=== PATIENT | female | born 1985 | race Caucasian/White ===

== ENCOUNTER 2018-06-22 05:04 | Observation (INO) | payer MEDICAID, SELFPAY ==
[2018-06-22] VITALS (31 sets, daily range): BP systolic 91–158; BP diastolic 52–82; PULSE 59–98; RESP 11–20; TEMP 36.6–36.9; O2SAT 95–100
--- NOTE | 2018-06-22 05:16 | ED.GENADUL_ITS ---
Disposition Clinical Impression: Cocaine intoxication, Hyponatremia, Hypomagnesemia Disposition: [facility] INPATIENT Condition: Fair Medical Decision Making - Lab Data Results reviewed for labs ordered during visit: Yes - EKG Data -: EKG Interpreted by Me EKG shows normal: sinus rhythm, axis, intervals Rate: normal Interpretation: normal EKG - Radiology Data Radiology results: report reviewed - Medical Decision Making Patient here after using cocaine last night. She seems mildly paranoid and anxious and is complaining of feeling chest pressure, shortness of breath, dizziness. Suspect this is all related to cocaine use. Will need to an EKG. Will place an IV and give fluids as well as a little Ativan. Will also give aspirin. Will get a chest x-ray and reevaluate. At the very least will probably hold for second troponin. Laboratory studies significant for sodium of 123. On repeat at this unchanged at 124 so not lab error. Magnesium was a little low and is being replaced. Saline continuing after the bolus at 150/hour. On further questioning patient states she drank a lot of water last night after started feeling bad. No etiology for her hyponatremia other than water intoxication. Troponin and d- dimer negative. Chest x-ray normal. She continues to be somewhat paranoid with flat affect. She does not express any homicidal or suicidal thoughts. Case discussed with hospitalist for admission due to the hyponatremia. We will send serum and urine osmolality. She will be admitted for telemetry observation for further evaluation and management. Patient in stable condition and accepted by Dr. Palm, hospitalist. History of Present Illness - General Chief complaint: RespSymp Stated complaint: RESP SYMP Time Seen by Provider: 06/22/18 05:14 Source: patient Mode of arrival: ambulatory Limitations: no limitations - History of Present Illness Initial comments: Patient presents to the emergency department with complaints of feeling short of breath, dizzy, pressure in her chest. She states this has been ongoing for 3 -4 hours now. She thinks it is related to her vaping, however, on closer questioning she used cocaine last night around midnight. She denies this being a regular habit. Symptoms started maybe 1-2 hours after. They have been gone going throughout the rest of the night. She has not been able to sleep. She is anxious. She feels like she cannot catch her breath. She feels like her legs are swelling up. She describes a pressure feeling and a fullness in her chest. She also complains of some pain with breathing in the left shoulder area. - Related Data Idamay-3S/Dha/Epa/Fish Oil [Fish Oil 1,200 mg Softgel] 1 each PO DAILY 06/27/13 Vit C 09/05/13 Allergies Allergy/AdvReac Type Severity Reaction Status Date / Time red dye Allergy Unknown HIVES ( Unverified 07/13/16 10:13 A LITTLE CHILD) wheat Allergy Unknown SKIN RASH Unverified 07/13/16 10:13 lactase [Lactase] AdvReac Unknown STUFFINESS, Unverified 07/13/16 10:13 NAUSEA acetaminophen [From Tylenol] AdvReac see comment Unverified 07/13/16 10:13 RED MEAT Allergy Unknown NAUSEA, Uncoded 07/13/16 10:13 VOMITTING, DIARRHEA, HIVES Review of Systems Constitutional: denies: chills, diaphoresis, fever Eyes: denies: vision change ENT: denies: throat pain, congestion Respiratory: shortness of breath. denies: cough Cardiovascular: chest pain. denies: syncope Gastrointestinal: denies: abdominal pain, nausea, vomiting, diarrhea Genitourinary: denies: dysuria Musculoskeletal: denies: back pain, arthralgia Skin: denies: rash Neurological: denies: headache, weakness, numbness Psychiatric: anxiety. denies: homicidal thoughts, suicidal thoughts Past Medical History - Past Medical History Medical history: no medical history Surgical history: no surgical history - Social History Smoking status: current some day smoker Alcohol use: none Drug use: cocaine, marijuana General Exam - General Limitations: no limitations General appearance: alert, in no apparent distress - Head Head exam: Present: atraumatic, normocephalic - Eye Eye exam: Present: normal apperance - Neck Neck exam: Present: normal inspection - Respiratory Respiratory exam: Present: normal lung sounds bilaterally. Absent: respiratory distress - Cardiovascular Cardiovascular Exam: Present: regular rate, normal rhythm, normal heart sounds - GI/Abdominal GI/Abdominal exam: Present: soft. Absent: distended, tenderness, guarding - Extremities Exam Extremities exam: Absent: tenderness, pedal edema, calf tenderness - Neurological Exam Neurological exam: Present: alert, oriented X3, CN II-XII intact. Absent: motor sensory deficit - Psychiatric Psychiatric exam: Present: flat affect - Skin Skin exam: Present: warm, dry, intact Course Vital Signs - 24 hr 06/22/18 05:08 Temperature 98.4 F Pulse 98 H Respiratory 16 Rate Blood Pressure 158/82 Pulse Oximetry 99
--- NOTE | 2018-06-22 05:45 | DI.REPORT_ITS ---
SYMPTOM/DIAGNOSIS: CHEST PAIN, SOB FRONTAL AND LATERAL CHEST: There is no evidence of an infiltrate or pleural effusion. The cardiovascular structures appear intact. SUMMARY: No evidence of acute cardiopulmonary disease.
[2018-06-22] MEDS: Aspirin 81 MG CHEW 324 MG CH (05:46)
[2018-06-22] MEDS: LORazepam 2 MG/ML VIAL 0.5 MG IVP (05:46)
[2018-06-22] MEDS: Normal Saline 1,000 ML 1000 ML IV (05:47)
[2018-06-22 05:52] LABS: *AMPHETAMINES SCREEN URINE Negative (Negative); *BARBITURATES SCREEN URINE Negative (Negative); *BENZODIAZEPINES SCREEN URINE Negative (Negative); Cannabinoids THC Negative (Negative); Cocaine Screen,Urine POSITIVE (Negative); METHADONE URINE SCREEN Negative (Negative); OPIATES URINE SCREEN Negative (Negative)
[2018-06-22 05:53] LABS: Abs Immature Grans 0.01 k/cumm (0.0-0.09); Absolute Basophil Count 0.02 k/cumm (0.0-0.2); Absolute Eosinophil Count 0.05 k/cumm (0.0-0.7); Absolute Lymphocyte Count 1.32 k/cumm (1.2-3.4); Absolute Monocyte Count 0.56 k/cumm (0.11-0.7); Absolute Neutrophil Count 3.98 k/cumm (1.2-6.7); Basophils % 0.3; Eosinophils % 0.8; HGB 11.9 g/dL (12.0-15.5); Immature Grans % 0.2; Lymphocytes % 22.2; Mean Corpuscular Volume 97.1 fL (80-95); Mean Platelet Volume 9.5 fL (8.0-11.0); Monocytes % 9.4; Neutrophils % 67.1; Platelet Count 218 x1000/uL (130-400); RBC Distribution Width 12.4 % (11.7-14.6); White Blood Cell Count 5.94 k/cumm (4.4-10.8)
[2018-06-22 05:53] LABS: Tricyclic Antidepressants Negative (Negative)
[2018-06-22 06:07] LABS: ALT 27 U/L (12-78); AST 19 U/L (15-37); Albumin 3.6 g/dL (3.4-5.0); Alkaline Phosphatase 41 U/L (46-116); Anion Gap 6.8 mmol/L (3-11); BUN 16 mg/dL (7-18); Bilirubin, Total 0.5 mg/dL (0.2-1.0); CO2 24.2 mmol/L (21.0-32.0); CREATININE 0.59 mg/dL (0.55-1.02); Calcium 8.5 mg/dL (8.5-10.1); Chloride 92 mmol/L (98-107); Glucose 102 mg/dL (70-100); Magnesium 1.4 mg/dL (1.8-2.4); Potassium 3.5 mmol/L (3.5-5.1); Total Protein 7.1 g/dL (6.4-8.2)
[2018-06-22 06:13] LABS: Sodium 123 mmol/L (136-145); Troponin I < 0.02 ng/mL (0.00-0.06)
--- NOTE | 2018-06-22 06:18 | DI.VRAD_ITS ---
EXAM: XR Chest, 2 Views CLINICAL HISTORY: 32 years old, female; Pain; Chest pain; Type not specified; Patient HX: Chest pain and SOB TECHNIQUE: Frontal and lateral views of the chest. COMPARISON: No relevant prior studies available. FINDINGS: Lungs: Lungs are mildly hyperinflated but clear of an acute process. Pleural space: Unremarkable. No pneumothorax. Heart: Unremarkable. No cardiomegaly. Mediastinum: Unremarkable. Bones/joints: Mild S-shaped scoliotic curvature with minimal degenerative change. IMPRESSION: Mild hyperinflation. No acute intrathoracic process. Dictated and Authenticated by: Rao Hays MD. Ordering:OLIVA SMYTH MD
[2018-06-22 06:31] LABS: D-Dimer 146 ng/mlFEU (<500)
[2018-06-22 06:37] LABS: Anion Gap 5.6 mmol/L (3-11); CO2 23.4 mmol/L (21.0-32.0); Chloride 95 mmol/L (98-107); Potassium 3.2 mmol/L (3.5-5.1)
[2018-06-22 06:40] LABS: Sodium 124 mmol/L (136-145)
[2018-06-22] MEDS: Normal Saline 1,000 ML 150 ML IV (06:55)
[2018-06-22 07:09] LABS: ETHANOL BLOOD < 3.0 mg/dL (<3)
[2018-06-22 10:33] LABS: Troponin I < 0.02 ng/mL (0.00-0.06)
--- NOTE | 2018-06-22 11:33 | PDOC.HP ---
Date of Service: 06/22/18 Time of Service: 11:33 Assessment/Plan - Assessment/Plan (1) Hyponatremia Plan: Likely related to significant free water intake. No other cause for hyponatremia identified at this point. Urine osmolality pending. Continue IV NS at current rate. Maintain fluid restriction. Reassess sodium level this afternoon to ensure sodium replacement is not occurring too rapidly. Plan to reassess sodium level again in the morning. (2) Hypomagnesemia Plan: She received IV magnesium bolus in the ED. Reassess magnesium in the morning. (3) Hypokalemia Plan: Provide oral potassium supplementation and reassess potassium level in the morning. History of Present Illness - History of Present Illness Chief Complaint: Dizzy, chest pressure, difficulty breathing. History of Present Illness: Joshua Capellan is a 32 year old female with no medical history who presented to the Emergency Department this morning with reports of feeling short of breath, dizzy and chest pressure for 3-4 hours prior to her arrival. She reported to the ED physician that she had used cocaine last night around midnight. Her symptoms began shortly after she used cocaine. She was not able to sleep all night, she was very anxious. She was given ativan and aspirin. She reports drinking copious amounts of water when she was not feeling well. In the ED her workup included an EKG, which showed normal sinus rhythm, normal axis and intervals. She had labs drawn which revealed hyponatremia with a sodium of 124, hypokalemia with a potassium level of 3.2, as well as hypomagnesemia with a magnesium level of 1.4. Her troponin came back negative x2. D-dimer was negative, Chest x-ray was normal. She is admitted to the med/surg floor for observation and treatment of her electrolyte abnormalities. - Past Medical History Past Medical History: Patient reports no past medical history - Past Surgical History Past Surgical History: None - Past Family History Family History: CAD (Father with history of [place]) - Past Social History Smoke: No (reports smoking occasionally, unable to quantify.) Occupation: Bilingual Student Tutor. Alcohol: Occassional (Not daily but unable to quantify any further.) Drugs: Cocaine (used cocaine last night, states she does not use regularly but has used previously.), Marijuana (Smokes marijuana sometimes.) Lives: With Family (She lives with her 5 year old son and her parents.) Review of Systems - Review of Systems Constitutional: Other (Fatigue). denies: Fever Respiratory: Shortness of Breath (she feels like, it is hard to breathe.). denies: Cough, Wheezing Cardiovascular: Chest Pain (She continues to report chest pressure). denies: Palpitations Gastrointestinal: Nausea (Mild nausea.). denies: Vomiting, Diarrhea, Constipation Genitourinary: denies: Dysuria Other: She was very sleepy throughout our conversation. She had to be awakened repeatedly. She did not sleep all night and had ativan in the ED. - Medications/Allergies Allergies/Adverse Reactions: Allergies Allergy/AdvReac Type Severity Reaction Status Date / Time red dye Allergy Unknown HIVES ( Unverified 07/13/16 10:13 A LITTLE CHILD) wheat Allergy Unknown SKIN RASH Unverified 07/13/16 10:13 lactase [Lactase] AdvReac Unknown STUFFINESS, Unverified 07/13/16 10:13 NAUSEA acetaminophen [From Tylenol] AdvReac see comment Unverified 07/13/16 10:13 RED MEAT Allergy Unknown NAUSEA, Uncoded 07/13/16 10:13 VOMITTING, DIARRHEA, HIVES Medications: Current Medications Albuterol Sulfate (Proventil Updraft) 2.5 mg UPD Q2H PRN PRN Albuterol/Ipratropium (Duoneb Updraft) 3 ml UPD Q6H PRN PRN Dimethicone/Zinc Oxide (Kevon Protect Cream) 0 gm TP PRN PRN Docusate Sodium (Colace) 100 mg PO TID PRN PRN Enoxaparin Sodium (Lovenox) 40 mg SC Q24H [facility] Magnesium Sulfate/Dextrose () Confirm Administered Dose 1 gm in 100 mls @ as directed .ROUTE .DM PRN Sodium Chloride (Saline 1000ml Bag) 1,000 mls @ 125 mls/hr IV INFUSION [facility] Last Admin: 06/22/18 06:55 Dose: 150 mls/hr IV Miscellaneous Supplies () 1 each IV DIRECTED [facility] Magnesium Hydroxide (Milk Of Magnesia) 30 ml PO DAILY PRN PRN Polyethylene Glycol (Miralax) 17 gm PO DAILY PRN PRN PRN Reason: Constipation Potassium Chloride (K-Dur) 40 meq PO BID [facility] Sodium Chloride (Saline Flush 10 Ml Syringe) 0 ml IVP PRN PRN Objective - Exam Vitals and I&O: Vital Signs Temp 36.7 C 06/22/18 08:46 Pulse 69 06/22/18 08:58 Resp 16 06/22/18 08:46 BP 134/77 06/22/18 08:46 Pulse Ox 100 06/22/18 08:46 Intake & Output 06/21/18 06/21/18 06/22/18 11:59 23:59 11:59 Intake Total 1000 Balance 1000 Weight 65.771 kg Intake: IV 1000 General: Oriented x3 (Answers questions appropriately when awakened, falls back alseep readily.), Cooperative, No acute distress. denies: Alert (Sleeping, difficult to awaken, falling asleep throughout conversation. ) HEENT: Atraumatic, PERRLA, Mucous membr. moist/pink Neck: Supple. denies: JVD Lungs: Clear to auscultation, Normal air movement (respirations are even and unlabroed. ) Cardiovascular: Regular rate (nontachycardic.), Normal S1, Normal S2. denies: Murmurs Abdomen: Normal bowel sounds, Soft, Tenderness (mild tenderness on palpation of abdomen.) Extremities: Normal pulses. denies: Clubbing, Cyanosis, Edema, Tenderness/swelling Skin: denies: Rashes Neurological: Normal speech, Strength at 5/5 X4 ext, Normal tone Psych/Mental Status: Other (does not appear anxious at present.) Results - Laboratory Data Result Diagrams: 06/22/18 05:35 06/22/18 06:25 Laboratory Results: Laboratory Tests 06/22/18 06/22/18 06/22/18 05:31 05:35 05:35 WBC 5.94 RBC 3.50 L Hgb 11.9 L Hct 34.0 L MCV 97.1 H MCH 34.0 H MCHC 35.0 RDW 12.4 Plt Count 218 MPV 9.5 Immature Gran % 0.2 Neutrophils % 67.1 Lymphocytes % 22.2 Monocytes % 9.4 Eosinophils % 0.8 Basophils % 0.3 Absolute Neutrophils 3.98 Absolute Lymphocytes 1.32 Absolute Monocytes 0.56 Absolute Eosinophils 0.05 Absolute Basophils 0.02 D-Dimer Sodium 123 L* Potassium 3.5 Chloride 92 L Carbon Dioxide 24.2 Anion Gap 6.8 BUN 16 Creatinine 0.59 Estimated GFR/1.73 m2 >= 60.00 Glucose 102 H Calcium 8.5 Magnesium 1.4 L Total Bilirubin 0.5 AST 19 ALT 27 Alkaline Phosphatase 41 L Troponin I < 0.02 Total Protein 7.1 Albumin 3.6 Urine Opiates Screen Negative Urine Methadone Screen Negative Ur Barbiturates Screen Negative Ur Tricyclics Screen Negative Ur Amphetamines Screen Negative U Benzodiazepines Scrn Negative Urine Cocaine Screen Positive Ur THC Screen Negative Ethyl Alcohol 06/22/18 06/22/18 06/22/18 05:50 06:25 06:25 WBC RBC Hgb Hct MCV MCH MCHC RDW Plt Count MPV Immature Gran % Neutrophils % Lymphocytes % Monocytes % Eosinophils % Basophils % Absolute Neutrophils Absolute Lymphocytes Absolute Monocytes Absolute Eosinophils Absolute Basophils D-Dimer 146 Sodium 124 L* Potassium 3.2 L Chloride 95 L Carbon Dioxide 23.4 Anion Gap 5.6 BUN Creatinine Estimated GFR/1.73 m2 Glucose Calcium Magnesium Total Bilirubin AST ALT Alkaline Phosphatase Troponin I Total Protein Albumin Urine Opiates Screen Urine Methadone Screen Ur Barbiturates Screen Ur Tricyclics Screen Ur Amphetamines Screen U Benzodiazepines Scrn Urine Cocaine Screen Ur THC Screen Ethyl Alcohol < 3.0
--- NOTE | 2018-06-22 11:46 | PDOC.HP_ITS ---
Date of Service: 06/22/18 Time of Service: 11:33 Assessment/Plan - Assessment/Plan (1) Hyponatremia Plan: Likely related to significant free water intake. No other cause for hyponatremia identified at this point. Urine osmolality pending. Continue IV NS at current rate. Maintain fluid restriction. Reassess sodium level this afternoon to ensure sodium replacement is not occurring too rapidly. Plan to reassess sodium level again in the morning. (2) Hypomagnesemia Plan: She received IV magnesium bolus in the ED. Reassess magnesium in the morning. (3) Hypokalemia Plan: Provide oral potassium supplementation and reassess potassium level in the morning. History of Present Illness - History of Present Illness Chief Complaint: Dizzy, chest pressure, difficulty breathing. History of Present Illness: Joshua Capellan is a 32 year old female with no medical history who presented to the Emergency Department this morning with reports of feeling short of breath , dizzy and chest pressure for 3-4 hours prior to her arrival. She reported to the ED physician that she had used cocaine last night around midnight. Her symptoms began shortly after she used cocaine. She was not able to sleep all night, she was very anxious. She was given ativan and aspirin. She reports drinking copious amounts of water when she was not feeling well. In the ED her workup included an EKG, which showed normal sinus rhythm, normal axis and intervals. She had labs drawn which revealed hyponatremia with a sodium of 124, hypokalemia with a potassium level of 3.2, as well as hypomagnesemia with a magnesium level of 1.4. Her troponin came back negative x2. D-dimer was negative, Chest x-ray was normal. She is admitted to the med/ surg floor for observation and treatment of her electrolyte abnormalities. - Past Medical History Past Medical History: Patient reports no past medical history - Past Surgical History Past Surgical History: None - Past Family History Family History: CAD (Father with history of [place]) - Past Social History Smoke: No (reports smoking occasionally, unable to quantify.) Occupation: [employer]. Alcohol: Occassional (Not daily but unable to quantify any further.) Drugs: Cocaine (used cocaine last night, states she does not use regularly but has used previously.), Marijuana (Smokes marijuana sometimes.) Lives: With Family (She lives with her 5 year old son and her parents.) Review of Systems - Review of Systems Constitutional: Other (Fatigue). denies: Fever Respiratory: Shortness of Breath (she feels like, it is hard to breathe.). denies: Cough, Wheezing Cardiovascular: Chest Pain (She continues to report chest pressure). denies: Palpitations Gastrointestinal: Nausea (Mild nausea.). denies: Vomiting, Diarrhea, Constipation Genitourinary: denies: Dysuria Other: She was very sleepy throughout our conversation. She had to be awakened repeatedly. She did not sleep all night and had ativan in the ED. - Medications/Allergies Allergies/Adverse Reactions: Allergies Allergy/AdvReac Type Severity Reaction Status Date / Time red dye Allergy Unknown HIVES ( Unverified 07/13/16 10:13 A LITTLE CHILD) wheat Allergy Unknown SKIN RASH Unverified 07/13/16 10:13 lactase [Lactase] AdvReac Unknown STUFFINESS, Unverified 07/13/16 10:13 NAUSEA acetaminophen [From Tylenol] AdvReac see comment Unverified 07/13/16 10:13 RED MEAT Allergy Unknown NAUSEA, Uncoded 07/13/16 10:13 VOMITTING, DIARRHEA, HIVES Medications: Current Medications Albuterol Sulfate (Proventil Updraft) 2.5 mg UPD Q2H PRN PRN Albuterol/Ipratropium (Duoneb Updraft) 3 ml UPD Q6H PRN PRN Dimethicone/Zinc Oxide (Kevon Protect Cream) 0 gm TP PRN PRN Docusate Sodium (Colace) 100 mg PO TID PRN PRN Enoxaparin Sodium (Lovenox) 40 mg SC Q24H [facility] Magnesium Sulfate/Dextrose () Confirm Administered Dose 1 gm in 100 mls @ as directed .ROUTE .DM PRN Sodium Chloride (Saline 1000ml Bag) 1,000 mls @ 125 mls/hr IV INFUSION [facility] Last Admin: 06/22/18 06:55 Dose: 150 mls/hr IV Miscellaneous Supplies () 1 each IV DIRECTED [facility] Magnesium Hydroxide (Milk Of Magnesia) 30 ml PO DAILY PRN PRN Polyethylene Glycol (Miralax) 17 gm PO DAILY PRN PRN PRN Reason: Constipation Potassium Chloride (K-Dur) 40 meq PO BID [facility] Sodium Chloride (Saline Flush 10 Ml Syringe) 0 ml IVP PRN PRN Objective - Exam Vitals and I&O: Vital Signs Temp 36.7 C 06/22/18 08:46 Pulse 69 06/22/18 08:58 Resp 16 06/22/18 08:46 BP 134/77 06/22/18 08:46 Pulse Ox 100 06/22/18 08:46 Intake & Output 06/21/18 06/21/18 06/22/18 11:59 23:59 11:59 Intake Total 1000 Balance 1000 Weight 65.771 kg Intake: IV 1000 General: Oriented x3 (Answers questions appropriately when awakened, falls back alseep readily.), Cooperative, No acute distress. denies: Alert (Sleeping, difficult to awaken, falling asleep throughout conversation. ) HEENT: Atraumatic, PERRLA, Mucous membr. moist/pink Neck: Supple. denies: JVD Lungs: Clear to auscultation, Normal air movement (respirations are even and unlabroed. ) Cardiovascular: Regular rate (nontachycardic.), Normal S1, Normal S2. denies: Murmurs Abdomen: Normal bowel sounds, Soft, Tenderness (mild tenderness on palpation of abdomen.) Extremities: Normal pulses. denies: Clubbing, Cyanosis, Edema, Tenderness/ swelling Skin: denies: Rashes Neurological: Normal speech, Strength at 5/5 X4 ext, Normal tone Psych/Mental Status: Other (does not appear anxious at present.) Results - Laboratory Data Result Diagrams: 06/22/18 05:35 06/22/18 06:25 Laboratory Results: Laboratory Tests 06/22/18 06/22/18 06/22/18 05:31 05:35 05:35 WBC 5.94 RBC 3.50 L Hgb 11.9 L Hct 34.0 L MCV 97.1 H MCH 34.0 H MCHC 35.0 RDW 12.4 Plt Count 218 MPV 9.5 Immature Gran % 0.2 Neutrophils % 67.1 Lymphocytes % 22.2 Monocytes % 9.4 Eosinophils % 0.8 Basophils % 0.3 Absolute Neutrophils 3.98 Absolute Lymphocytes 1.32 Absolute Monocytes 0.56 Absolute Eosinophils 0.05 Absolute Basophils 0.02 D-Dimer Sodium 123 L* Potassium 3.5 Chloride 92 L Carbon Dioxide 24.2 Anion Gap 6.8 BUN 16 Creatinine 0.59 Estimated GFR/1.73 m2 >= 60.00 Glucose 102 H Calcium 8.5 Magnesium 1.4 L Total Bilirubin 0.5 AST 19 ALT 27 Alkaline Phosphatase 41 L Troponin I < 0.02 Total Protein 7.1 Albumin 3.6 Urine Opiates Screen Negative Urine Methadone Screen Negative Ur Barbiturates Screen Negative Ur Tricyclics Screen Negative Ur Amphetamines Screen Negative U Benzodiazepines Scrn Negative Urine Cocaine Screen Positive Ur THC Screen Negative Ethyl Alcohol 06/22/18 06/22/18 06/22/18 05:50 06:25 06:25 WBC RBC Hgb Hct MCV MCH MCHC RDW Plt Count MPV Immature Gran % Neutrophils % Lymphocytes % Monocytes % Eosinophils % Basophils % Absolute Neutrophils Absolute Lymphocytes Absolute Monocytes Absolute Eosinophils Absolute Basophils D-Dimer 146 Sodium 124 L* Potassium 3.2 L Chloride 95 L Carbon Dioxide 23.4 Anion Gap 5.6 BUN Creatinine Estimated GFR/1.73 m2 Glucose Calcium Magnesium Total Bilirubin AST ALT Alkaline Phosphatase Troponin I Total Protein Albumin Urine Opiates Screen Urine Methadone Screen Ur Barbiturates Screen Ur Tricyclics Screen Ur Amphetamines Screen U Benzodiazepines Scrn Urine Cocaine Screen Ur THC Screen Ethyl Alcohol < 3.0
[2018-06-22] MEDS: Potassium Chloride 20 MEQ TABCR 40 MEQ PO ×2 (11:47→20:39)
[2018-06-22 14:25] LABS: Anion Gap 2.9 mmol/L (3-11); BUN 11 mg/dL (7-18); CO2 27.1 mmol/L (21.0-32.0); CREATININE 0.53 mg/dL (0.55-1.02); Calcium 8.2 mg/dL (8.5-10.1); Chloride 108 mmol/L (98-107); Glucose 107 mg/dL (70-100); Potassium 4.4 mmol/L (3.5-5.1); Sodium 138 mmol/L (136-145)
[2018-06-22] MEDS: Normal Saline 1,000 ML 125 ML IV (14:31)
--- NOTE | 2018-06-22 15:06 | CHAPLAIN ---
Thefermin's (Lindsay)'s mom Gautam asked me to pray with her while we were in the family waiting room. And then she asked me to offer a prayer with Lindsay, who was resting. Lindsay agreed to let us pray with her. Gautam said she is not a Lindsay's HIPPA list of who medical staff can speak with, although Lindsay lives with Gautam and her , Corey, who is Lindsay's father. Lindsay also has a five year old son, Dillon. 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
--- NOTE | 2018-06-22 18:37 | NUR.NOTE ---
Nursing Note: Pt slept almost entire shift. Awoke @ 1800, hungry and thirsty. Eating food provided by her mother, nuts lenard kolb. Asking at this time if she can be discharged. Pt informed MD wants to keep her here overnight. Pt agreeable to stay. Pt had water bottle in room, she drank approximately 550 ml. Pt informed she was on fluid restriction and asked not to drink anything not provided by hospital staff.
[2018-06-22 21:17] LABS: Osmolality, Urine 82 mos/kg (150-1150)
[2018-06-22 22:11] LABS: Osmolality Serum 253 mos/kg (275-295)
[2018-06-23 00:23] VITALS: BP 100/56; PULSE 54; RESP 17; TEMP 36.6; O2SAT 98
[2018-06-23 03:51] VITALS: BP 100/58; PULSE 55; RESP 15; TEMP 35.8; O2SAT 98
[2018-06-23 06:44] LABS: HCT 38.5 % (36.0-46.0); Mean Corp. HGB Concentration 33.8 g/dL (32.0-36.0); Mean Corpuscular Hemoglobin 33.7 pg (27.0-33.0); Mean Corpuscular Volume 99.7 fL (80-95); Mean Platelet Volume 9.8 fL (8.0-11.0); Platelet Count 241 x1000/uL (130-400); RBC 3.86 m/cumm (4.00-5.20); RBC Distribution Width 12.9 % (11.7-14.6); White Blood Cell Count 5.67 k/cumm (4.4-10.8)
[2018-06-23 07:10] LABS: Magnesium 1.7 mg/dL (1.8-2.4); TSH (W/Ref FT4) 2.26 uIU/mL (0.358-3.74)
--- NOTE | 2018-06-23 07:17 | PDOC.CMIN ---
Date of Service: 06/23/18 Time of Service: 11:03 Care Management Initial Assess REASON FOR HOSPITALIZATION:: Dizzy, Chest pressure, Difficulty breathing PAST MEDICAL HISTORY/PAST SURGICAL HISTORY:: Reports no medical history PREVIOUS FUNCTIONAL STATUS/SOCIAL/FAMILY SUPPORTS:: Joshua Montoya resides with her parents Luis E and Corey, as well as her 5 y/o son in [facility]. Lindsay is independent at baseline, she manages her ADL's and drives. CURRENT FUNCTIONAL STATUS:: Lindsay is lying in bed when this bond underwriter visits. She is pleasant throughout discussion. ADVANCE DIRECTIVES:: None on file Has patient been provided with information about the portal?: Yes Did the patient sign up for the portal?: No CODE STATUS:: Full Code INSURANCE COVERAGE / FINANCIAL ISSUES:: Medicaid CURRENT HOME/COMMUNITY SERVICES/EQUIPMENT:: Currently Pt has no services or medical equipment in the community. PRIMARY CARE PHYSICIAN:: Mariana Vincent POTENTIAL DISCHARGE NEEDS:: F/U appointment with PCP PATIENT/FAMILY EDUCATION NEEDS:: Review DC instructions, any limitations, and ongoing DC planning discussion. ANTICIPATED BARRIERS TO DISCHARGE:: None identified at this time. TRANSPORTATION:: Via private vehicle with mom Luis E PLAN:: Lindsay will return home with no anticipated services. She will F/U with PCP and plan of care as prescribed. Lindsay's mom will transport when ready.
[2018-06-23 07:35] VITALS: BP 118/70; PULSE 64; RESP 22; TEMP 36.8; O2SAT 99
--- NOTE | 2018-06-23 07:52 | INITIAL_ITS ---
Date of Service: 06/23/18 Time of Service: 11:03 Care Management Initial Assess REASON FOR HOSPITALIZATION:: Dizzy, Chest pressure, Difficulty breathing PAST MEDICAL HISTORY/PAST SURGICAL HISTORY:: Reports no medical history PREVIOUS FUNCTIONAL STATUS/SOCIAL/FAMILY SUPPORTS:: Joshua Montoya resides with her parents Luis E and Corey, as well as her 5 y/o son in [facility]. Lindsay is independent at baseline, she manages her ADL's and drives. CURRENT FUNCTIONAL STATUS:: Lindsay is lying in bed when this medical underwriter visits. She is pleasant throughout discussion. ADVANCE DIRECTIVES:: None on file Has patient been provided with information about the portal?: Yes Did the patient sign up for the portal?: No CODE STATUS:: Full Code INSURANCE COVERAGE / FINANCIAL ISSUES:: Medicaid CURRENT HOME/COMMUNITY SERVICES/EQUIPMENT:: Currently Pt has no services or medical equipment in the community. PRIMARY CARE PHYSICIAN:: Mariana Vincent POTENTIAL DISCHARGE NEEDS:: F/U appointment with PCP PATIENT/FAMILY EDUCATION NEEDS:: Review DC instructions, any limitations, and ongoing DC planning discussion. ANTICIPATED BARRIERS TO DISCHARGE:: None identified at this time. TRANSPORTATION:: Via private vehicle with mom Luis E PLAN:: Lindsay will return home with no anticipated services. She will F/U with PCP and plan of care as prescribed. Lindsay's mom will transport when ready.
[2018-06-23 08:14] LABS: Anion Gap 8.8 mmol/L (3-11); BUN 14 mg/dL (7-18); CO2 23.2 mmol/L (21.0-32.0); CREATININE 0.66 mg/dL (0.55-1.02); Calcium 8.7 mg/dL (8.5-10.1); Chloride 107 mmol/L (98-107); Glucose 86 mg/dL (70-100); Potassium 4.4 mmol/L (3.5-5.1); Sodium 139 mmol/L (136-145)
[2018-06-23] MEDS: Potassium Chloride 20 MEQ TABCR 40 MEQ PO (08:32)
[2018-06-23] MEDS: Magnesium Oxide 400 MG TAB PO (08:32)
--- NOTE | 2018-06-23 11:02 | DISCHARGE ---
Discharge - Discharge Orders Referrals: NATALY WARNER [ NON-[facility] STAFF PHYSICIAN] - 06/29/18 10:15 am (Joshua, please call to confirm your appointment.) Other Amb Orders: Basic Metabolic Panel [LAB] Time Frame: 1 Week, Location: Determined By Patient Magnesium [LAB] Time Frame: 1 Week, Location: Determined By Patient - Discharge Plan Disposition: HOME Condition: Improving Diet:: As Tolerated Equipment/Supplies:: No Equipment Needed Activity:: Activity as Tolerated - Instructions Micromedex Instructions: Hyponatremia (DC), Hypokalemia (DC), Hypomagnesemia (DC) Additional Instructions: Follow up with your PCP as scheduled. Your PCP may decide to do a follow up EKG. You should incorporate more magnesium into your diet, some magnesium rich foods are: Dark chocolate, avocados, nuts, legumes, tofu, seeds, whole grains. You can look online to see more options. You will need to have blood work done next week to reassess your Sodium, magnesium and potassium. Take care!
--- NOTE | 2018-06-23 11:06 | PDOC.CMDIS ---
Date of Service: 06/23/18 Time of Service: 11:06 LACE Index Scoring Tool - Questions: Length of Stay (in days): 2 Acuity (Admit via E.D.?): Yes E.D. Visits: 1 - Answers: Total Score: 6 Risk of Readmission: Low Risk Care Management Discharge Reason for Hospitalization: Dizzy, Chest pressure, Difficulty breathing Discharge Plan: Lindsay will return home today with no services. She will F/U with PCP and plan of care as prescribed. Lindsay's family will transport when ready. Patient/Family Education Needs: Review DC instructions, any limitations, and discuss Ask Me Three
--- NOTE | 2018-06-23 11:08 | PDOC.DISCH_ITS ---
Discharge - Discharge Orders Referrals: NATALY WARNER [ NON-[facility] STAFF PHYSICIAN] - 06/29/18 10:15 am (Joshua, please call to confirm your appointment.) Other Amb Orders: Basic Metabolic Panel [LAB] Time Frame: 1 Week, Location: Determined By Patient Magnesium [LAB] Time Frame: 1 Week, Location: Determined By Patient - Discharge Plan Disposition: HOME Condition: Improving Diet:: As Tolerated Equipment/Supplies:: No Equipment Needed Activity:: Activity as Tolerated - Instructions Micromedex Instructions: Hyponatremia (DC), Hypokalemia (DC), Hypomagnesemia ( DC) Additional Instructions: Follow up with your PCP as scheduled. Your PCP may decide to do a follow up EKG. You should incorporate more magnesium into your diet, some magnesium rich foods are: Dark chocolate, avocados, nuts, legumes, tofu, seeds, whole grains. You can look online to see more options. You will need to have blood work done next week to reassess your Sodium, magnesium and potassium. Take care!
[2018-06-23 11:12] VITALS: PULSE 69
--- NOTE | 2018-06-23 15:00 | DSE_ITS ---
DISCHARGE SUMMARY DATE OF DISCHARGE June 23, 2018 Lauren Gomez NP - Working Dr. Palm. REASON FOR ADMISSION Hyponatremia. Hypomagnesemia. Hypokalemia. Chest pressure. Difficulty breathing. Dizziness. HOSPITAL COURSE Joshua Capellan is a 32-year-old female with no medical history, who [facility] with feelings of shortness of breath, dizziness and chest pressure for about three to four hours prior to her arrival. She reported to the Emergency department attending that sh grisel had used cocaine the night prior around midnight. Her symptoms began shortly after she used the co sergei. She was not able to sleep all night. She was very anxious. She reported drinking copious amoun ts of water when she was not feeling well as that was the only thing that seemed to make her feel bet ter. In the Emergency Department, her labs were drawn and she was noted to be hyponatremic with a sodium o f 124, hypokalemic with a potassium of 3.2, as well as hypomagnesemic with a magnesium level of 1.4. She was given Ativan for her anxiety and aspirin for her reports of chest pressure. She had an EKG, w hich showed normal sinus rhythm with normal axis and intervals. She had troponins drawn, which came back negative x2. Her D-dimer was negative. She did have a chest x-ray that was normal with question of some mild hyperinflation noted. She was admitted to the Med/Surg floor for observation and treatment of her electrolytes abnormalitie s. She was initially placed on fluid restriction and given normal saline. Her sodium level was reassesse d in the afternoon and came back within normal limits, so the IV normal saline was stopped. She did receive a magnesium bolus in the Emergency Department with some improvement in her magnesium overnigh t; however she was mildly low on the morning of discharge at 1.7 and did receive oral supplementation . Her potassium improved overnight with potassium supplementation. She will need follow-up labs to reassess her electrolytes next week. She was monitored on telemetry overnight. She was noted to be in sinus to sinus bradycardia. She di d have inverted T-waves noted in the V lead. A follow-up EKG on the morning of discharge showed poor R-wave progression, possibly secondary to pulmonary disease. Her intervals were normal. Her heart rate was 64. She will be discharged home in improved condition. She feels back to herself. She is advised to abs tain from using cocaine. There was some concern that the potassium could possibly have contained the additive levamisole, which has been noted in case reports to cause hyponatremia. The ingestion of significant amounts of free water could also have resulted in hyponatremia. She will need follow-up labs in one weeks' time. SIGNIFICANT TEST RESULTS: Her sodium on admission was 123, with follow-up in the Emergency Department being 124. This morning her sodium has improved to 139. Her initial potassium was 3.2 with follow-up this morning of 4.4. H er chloride is 107, carbon dioxide 23.2, BUN is 14, creatinine 0.66, estimated GFR >60, her calcium t his morning is 8.7, magnesium was low at 1.4 on admission and improved to 1.7 this morning. She did receive additional magnesium supplementation for that. Her Troponin was <0.02 x2. Her TSH was within normal limits at 2.26. D-dimer on admission was 146. White blood cell count 5.67, red blood cells stable at 3.86, hemoglobin 13, hematocrit 38.5, platelet count 241,000. She did have a urine drug screen on admission which was positive for cocaine, negative for THC or any other drugs of abuse. Her ethyl alcohol was <3. Urine osmolality came back low at 82 on admission. Serum osmolality on admission came back just mild ly low at 253. DISCHARGE DIAGNOSES: ACUTE: 1. Electrolyte abnormalities. a. Hyponatremia. b. Hypomagnesemia. c. Hypokalemia. d. All improving with supplementation in the setting of cocaine intoxication. CHRONIC: No reported chronic medical conditions. DISCHARGE MEDICATIONS: 1. [place] 3 fatty acids 1200 mg p.o. daily. 2. Vitamin C. DISPOSITION: Joshua Capellan is discharged home in improved condition. She may benefit from a follow-up EKG as an outpatient. Her primary care provider could consider this , as she did have poor P-wave progression. Also consider possible pulmonary function testing, as thi s could indicate lung disease. She will have follow-up labs in one weeks' time to reassess her magnesium, potassium and sodium. She is advised to refrain from using cocaine. Her condition is markedly improved. She feels like herself. She will be discharged home to her usua l activities. This case was discussed with Dr. Palm, who is in agreement.
== END 2018-06-23 12:58 | disposition home or self-care (01) ==
PROVIDERS: Nurse Practitioner; Admitting Provider Family Medicine; Emergency Provider Emergency Medicine; PCP Family Medicine; Visit Provider Family Medicine
DX: E87.1 Hypo-osmolality and hyponatremia (principal); E83.42 Hypomagnesemia; E87.6 Hypokalemia; R07.89 Other chest pain; R06.09 Other forms of dyspnea; R42 Dizziness and giddiness; F41.9 Anxiety disorder, unspecified; F14.90 Cocaine use, unspecified, uncomplicated
CPT/HCPCS: 36415; 80048; 80051; 80053; 80307; 81025; 83935; 85027; 93005; 96361; 96365; 96366; 96375; 99285; 71046; 80320; 83735; 83930; 84443; 84484; 85025; 85379; 93010; 99217; 99219; 99284; G0378; J2060; J3475

== ENCOUNTER 2018-06-24 11:45 | Emergency (ER) | payer MEDICAID, SELFPAY ==
--- NOTE | 2018-06-24 12:35 | DI.CT_ITS ---
SYMPTOMS/DIAGNOSIS: CHEST PAIN CT ANGIOGRAPHY OF THE THORAX: CT angiography was performed with multi slice acquisition and multi planar and 3D reconstruction. Comparison is made with chest x-ray dated May,. There is no evidence of pulmonary emboli or aortic dissection. The aorta is normal in diameter. The lungs are clear. The heart size is normal. No pleural or pericardial effusions are seen. The visualized portions of the upper abdominal organs are unremarkable. No bony abnormalities are seen. IMPRESSION: Negative CT angiography of the thorax.
[2018-06-24 16:15] LABS: Absolute Lymphocyte Count 1.61 k/cumm (1.2-3.4); Absolute Monocyte Count 0.49 k/cumm (0.11-0.7); HCT 40.2 % (36.0-46.0); HGB 13.7 g/dL (12.0-15.5); Lymphocytes % 22.9; Mean Corp. HGB Concentration 34.1 g/dL (32.0-36.0); Mean Corpuscular Hemoglobin 33.4 pg (27.0-33.0); Mean Platelet Volume 9.7 fL (8.0-11.0); Neutrophils % 68.5; Platelet Count 263 x1000/uL (130-400); RBC Distribution Width 12.7 % (11.7-14.6); White Blood Cell Count 7.03 k/cumm (4.4-10.8)
[2018-06-24 16:16] LABS: Abs Immature Grans 0.01 k/cumm (0.0-0.09); Absolute Basophil Count 0.03 k/cumm (0.0-0.2); Absolute Eosinophil Count 0.08 k/cumm (0.0-0.7); Absolute Neutrophil Count 4.81 k/cumm (1.2-6.7); Basophils % 0.4; Eosinophils % 1.1; Immature Grans % 0.1
[2018-06-24 16:18] LABS: Anion Gap 7.3 mmol/L (3-11); BUN 11 mg/dL (7-18); CO2 26.7 mmol/L (21.0-32.0); CREATININE 0.72 mg/dL (0.55-1.02); Calcium 9.8 mg/dL (8.5-10.1); Chloride 102 mmol/L (98-107); Glucose 88 mg/dL (70-100); Magnesium 1.8 mg/dL (1.8-2.4); Potassium 4.5 mmol/L (3.5-5.1); Sodium 136 mmol/L (136-145); Troponin I < 0.02 ng/mL (0.00-0.06)
[2018-06-24 16:25] LABS: INR 1.1 (1.0-3.5); PTT Activated 23.3 sec (21.0-31.4); Prothrombin Time 10.3 sec (9.3-10.8)
--- NOTE | 2018-06-25 09:04 | CMPROGNOTE_ITS ---
Care Management Progress Note 06/25-Dr. Dawson requested assistance with a PCP (Robina) f/u in one week for chest pain. Referral faxed to [facility].
== END 2018-06-24 13:10 | disposition home or self-care (01) ==
LOC: ER 12:19
PROVIDERS: Emergency Provider Emergency Medicine; PCP Family Medicine
DX: R07.89 Other chest pain (principal)
CPT/HCPCS: 36415; 71275; 80048; 80053; 93005; 99285; 83735; 84484; 85025; 85610; 85730; 93010

== ENCOUNTER 2018-08-06 23:15 | Emergency (ER) | payer MEDICAID, SELFPAY ==
[2018-08-06 23:23] VITALS: BP 146/76; PULSE 104; RESP 20; TEMP 37.1
[2018-08-07] VITALS (10 sets, daily range): BP systolic 115–126; BP diastolic 62–66; PULSE 74–88; RESP 13–20; O2SAT 96–97
--- NOTE | 2018-08-07 00:33 | DI.CT_ITS ---
SYMPTOM/DIAGNOSIS: DIZZY, CHEST TIGHTNESS PE CHEST CT: CT angiography was performed with multi slice acquisition and multi planar and 3D reconstruction. CT angiography was performed with intravenous infusion of 60 cc's of Omnipaque 350. No evidence of pulmonary embolic disease. Thoracic aorta and major branches are normal in appearance. Upper abdominal aorta also intact with unremarkable appearance of renal arteries, SMA and celiac trunk. The lungs are clear and normally expanded. No mediastinal or hilar adenopathy. No pleural effusion or pleural based mass. Images obtained through the upper abdomen show unremarkable appearance of visualized portions of the liver, spleen, pancreas, adrenals and kidneys. CONCLUSION: Negative CTA chest, no evidence of pulmonary embolic disease.
--- NOTE | 2018-08-07 00:35 | W.ED.GENAD ---
Discharge Plan Disposition Patient Disposition: HOME Discharge Details Chief Complaint: Palpitatns Clinical Impression: Palpitations Primary Care Provider: Rylie Quarles ED Provider: Melo Alvares Home Meds and New Rx's Prescriptions: Continue VIT C RF: 0 [id number]-epa-fish oil 1 EACH capsule 1 ea PO DAILY RF: 0 multivitamin Tablet 1 tab PO DAILY RF: 0 Discharge Instructions Instructions: Palpitations (ED) Additional Instructions: Please drink plenty of fluids to stay hydrated. Rest over the next couple days. Please contact your primary care physician to arrange follow-up. Return to the ER for any worsening or new concerning symptoms. Referrals: Rylie Quarles MD [Primary Care Provider] - Medical Decision Making 00:45 --32-year-old female here with lightheadedness, palpitations, chest tightness with shortness of breath as well as recent left lower leg discomfort. Concern for acute pulmonary embolism. Consider arrhythmia. Consider acute anxiety. Consider electrolyte abnormalities. ECG reviewed and interpreted by me: Sinus rhythm 86 bpm, normal axis, no STEMI, nondiagnostic. Will CT chest. 2:30 --labs reviewed and nondiagnostic. CT of the chest interpreted by radiology: No acute findings, pulmonary arteries unremarkable with no pulmonary embolism. Patient reassessed and feeling better. Plan to be discharged with zio patch monitoring tech. I encouraged her to follow-up with her primary care physician. Patient verbalized importance of understanding of timely outpatient follow-up. I advised that she should return here immediately for any worsening or new concerning symptoms. HPI General Mode of arrival: ambulatory. Date/Time Provider Initiated Documentation: 08/06/18 23:47. Limitations to Documentation: no limitations. Information obtained by: patient. HPI Narrative: 32yo f with no medical problems presents with chief complaint of dizziness. 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 Symptoms were severe. No modifiers. She noticed associated palpitations described as heart racing as well as shortness of breath and chest tightness. She is also experienced some chills. Patient does note that earlier today she had some pain in her left posterior lower leg. No history of blood clots. No recent long distance travel or immobility. Symptoms have improved since arrival. She also notes some bruising left lower pelvis for the past few days. Related Data Home Medications Medication Instructions Recorded Confirmed [id number]-epa-fish oil 1 ea PO DAILY 06/27/13 08/06/18 multivitamin 1 tab PO DAILY 08/06/18 08/06/18 Allergies Allergy/AdvReac Type Severity Reaction Status Date / Time red dye Allergy Unknown HIVES ( Unverified 07/13/16 10:13 A LITTLE CHILD) wheat Allergy Unknown SKIN RASH Unverified 07/13/16 10:13 lactase [Lactase] AdvReac Unknown STUFFINESS, Unverified 07/13/16 10:13 NAUSEA acetaminophen [From Tylenol] AdvReac see comment Unverified 07/13/16 10:13 RED MEAT Allergy Unknown NAUSEA, Uncoded 07/13/16 10:13 VOMITTING, DIARRHEA, HIVES General Stated Complaint: Palpitatns BETHANY: 2 Review of Systems Review of Systems All systems reviewed & are unremarkable except as noted in HPI and below Constitutional Denies weakness Eyes Reports blurry vision Cardiovascular Reports chest pain, Denies syncope, Reports palpitations and Denies dyspnea Respiratory Denies dyspnea Gastrointestinal Denies nausea and Denies vomiting Neurologic Denies syncope and Denies weakness Endocrine Reports palpitations PFSH Social History Smoking/Tobacco Use Status: Current-Occasional Exam Const General: cooperative and no acute distress HENMT Head: normocephalic and atraumatic Mouth: moist mucous membranes Eyes Conjunctivae: normal conjunctivae Sclera: normal sclerae EOM: EOM intact bilaterally Neck Neck: supple Resp Auscultation: clear to auscultation bilaterally, no rales, no rhonchi and no wheezes Cardio Jugular venous pressure: no JVD Rate: regular rate and not tachycardic Rhythm: regular rhythm GI Palpation: soft, not firm, no guarding, no masses, not rigid and nontender Skin General skin exam: dry skin Neuro General: alert, awake and tone normal Extrem General: no calf tenderness bilaterally and no edema Psych Mental Status: mental status grossly normal Affect: anxious affect Course Vital Signs Temperature 37.1 C 08/06/18 23:23 Pulse 104 H 08/06/18 23:23 Respiratory Rate 20 08/06/18 23:23 Blood Pressure 146/76 H 08/06/18 23:23 Temperature 37.1 C 08/06/18 23:23 Temperature Source Temporal Artery Scan 08/06/18 23:23 Pulse 104 H 08/06/18 23:23 Respiratory Rate 20 08/06/18 23:23 Respiratory Effort Non-Labored 08/06/18 23:34 Blood Pressure 146/76 H 08/06/18 23:23 Blood Pressure Position Sitting 08/06/18 23:23 Oxygen Delivery Method Room Air 08/06/18 23:23 Oxygen Flow Rate 0 08/06/18 23:23 Pain Level 6 08/06/18 23:23 Comment 08/06/18 23:23
--- NOTE | 2018-08-07 00:38 | ED.GENADUL_ITS ---
Discharge Plan Disposition Patient Disposition: HOME Discharge Details Chief Complaint: Palpitatns Clinical Impression: Palpitations Primary Care Provider: Rylie Quarles ED Provider: Melo Alvares Home Meds and New Rx's Prescriptions: Continue VIT C RF: 0 redvd-4n-hel-epa-fish oil 1 EACH capsule 1 ea PO DAILY RF: 0 multivitamin Tablet 1 tab PO DAILY RF: 0 Discharge Instructions Instructions: Palpitations (ED) Additional Instructions: Please drink plenty of fluids to stay hydrated. Rest over the next couple days. Please contact your primary care physician to arrange follow-up. Return to the ER for any worsening or new concerning symptoms. Referrals: Rylie Quarles MD [Primary Care Provider] - Medical Decision Making 00:45 --32-year-old female here with lightheadedness, palpitations, chest tightness with shortness of breath as well as recent left lower leg discomfort. Concern for acute pulmonary embolism. Consider arrhythmia. Consider acute anxiety. Consider electrolyte abnormalities. ECG reviewed and interpreted by me: Sinus rhythm 86 bpm, normal axis, no STEMI, nondiagnostic. Will CT chest. 2:30 --labs reviewed and nondiagnostic. CT of the chest interpreted by radiology: No acute findings, pulmonary arteries unremarkable with no pulmonary embolism. Patient reassessed and feeling better. Plan to be discharged with zio patch residential monitor. I encouraged her to follow-up with her primary care physician. Patient verbalized importance of understanding of timely outpatient follow-up. I advised that she should return here immediately for any worsening or new concerning symptoms. HPI General Mode of arrival: ambulatory . Date/Time Provider Initiated Documentation: 08/06/18 23:47 . Limitations to Documentation: no limitations . Information obtained by: patient . HPI Narrative: 32yo f with no medical problems presents with chief complaint of dizziness. 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 Symptoms were severe. No modifiers. She noticed associated palpitations described as heart racing as well as shortness of breath and chest tightness. She is also experienced some chills. Patient does note that earlier today she had some pain in her left posterior lower leg. No history of blood clots. No recent long distance travel or immobility. Symptoms have improved since arrival. She also notes some bruising left lower pelvis for the past few days. Related Data Home Medications Medication Instructions Recorded Confirmed [id number]-epa-fish oil 1 ea PO DAILY 06/27/13 08/06/18 multivitamin 1 tab PO DAILY 08/06/18 08/06/18 Allergies Allergy/AdvReac Type Severity Reaction Status Date / Time red dye Allergy Unknown HIVES ( Unverified 07/13/16 10:13 A LITTLE CHILD) wheat Allergy Unknown SKIN RASH Unverified 07/13/16 10:13 lactase [Lactase] AdvReac Unknown STUFFINESS, Unverified 07/13/16 10:13 NAUSEA acetaminophen [From Tylenol] AdvReac see comment Unverified 07/13/16 10:13 RED MEAT Allergy Unknown NAUSEA, Uncoded 07/13/16 10:13 VOMITTING, DIARRHEA, HIVES General Stated Complaint: Palpitatns BETHANY: 2 Review of Systems Review of Systems All systems reviewed & are unremarkable except as noted in HPI and below Constitutional Denies weakness Eyes Reports blurry vision Cardiovascular Reports chest pain, Denies syncope, Reports palpitations and Denies dyspnea Respiratory Denies dyspnea Gastrointestinal Denies nausea and Denies vomiting Neurologic Denies syncope and Denies weakness Endocrine Reports palpitations PFSH Social History Smoking/Tobacco Use Status: Current-Occasional Exam Const General: cooperative and no acute distress HENMT Head: normocephalic and atraumatic Mouth: moist mucous membranes Eyes Conjunctivae: normal conjunctivae Sclera: normal sclerae EOM: EOM intact bilaterally Neck Neck: supple Resp Auscultation: clear to auscultation bilaterally, no rales, no rhonchi and no wheezes Cardio Jugular venous pressure: no JVD Rate: regular rate and not tachycardic Rhythm: regular rhythm GI Palpation: soft, not firm, no guarding, no masses, not rigid and nontender Skin General skin exam: dry skin Neuro General: alert, awake and tone normal Extrem General: no calf tenderness bilaterally and no edema Psych Mental Status: mental status grossly normal Affect: anxious affect Course Vital Signs Temperature 37.1 C 08/06/18 23:23 Pulse 104 H 08/06/18 23:23 Respiratory Rate 20 08/06/18 23:23 Blood Pressure 146/76 H 08/06/18 23:23 Temperature 37.1 C 08/06/18 23:23 Temperature Source Temporal Artery Scan 08/06/18 23:23 Pulse 104 H 08/06/18 23:23 Respiratory Rate 20 08/06/18 23:23 Respiratory Effort Non-Labored 08/06/18 23:34 Blood Pressure 146/76 H 08/06/18 23:23 Blood Pressure Position Sitting 08/06/18 23:23 Oxygen Delivery Method Room Air 08/06/18 23:23 Oxygen Flow Rate 0 08/06/18 23:23 Pain Level 6 08/06/18 23:23 Comment 08/06/18 23:23
[2018-08-07 00:45] LABS: Absolute Basophil Count 0.02 k/cumm (0.0-0.2); Absolute Eosinophil Count 0.18 k/cumm (0.0-0.7); Absolute Lymphocyte Count 2.23 k/cumm (1.2-3.4); Absolute Monocyte Count 0.49 k/cumm (0.11-0.7); Basophils % 0.3; Eosinophils % 2.9; HGB 12.2 g/dL (12.0-15.5); Lymphocytes % 35.9; Mean Corp. HGB Concentration 33.9 g/dL (32.0-36.0); Mean Corpuscular Hemoglobin 34.6 pg (27.0-33.0); Mean Platelet Volume 9.5 fL (8.0-11.0); Monocytes % 7.9; Platelet Count 232 x1000/uL (130-400); RBC 3.53 m/cumm (4.00-5.20); RBC Distribution Width 12.6 % (11.7-14.6); White Blood Cell Count 6.22 k/cumm (4.4-10.8)
[2018-08-07 01:03] LABS: ALT 28 U/L (12-78); AST 26 U/L (15-37); Albumin 3.6 g/dL (3.4-5.0); Alkaline Phosphatase 52 U/L (46-116); Anion Gap 13.2 mmol/L (3-11); BUN 13 mg/dL (7-18); Bilirubin, Direct 0.11 mg/dL (0.00-0.20); Bilirubin, Total 0.3 mg/dL (0.2-1.0); CO2 25.8 mmol/L (21.0-32.0); CREATININE 0.59 mg/dL (0.55-1.02); Calcium 9.2 mg/dL (8.5-10.1); Chloride 101 mmol/L (98-107); Glucose 82 mg/dL (70-100); Magnesium 2.1 mg/dL (1.8-2.4); Potassium 3.9 mmol/L (3.5-5.1); Sodium 140 mmol/L (136-145); Total Protein 7.4 g/dL (6.4-8.2); Troponin I < 0.02 ng/mL (0.00-0.06)
[2018-08-07] MEDS: Omnipaque 350 MG/ML 100 ML BTL IJ (01:40)
--- NOTE | 2018-08-07 01:48 | DI.VRAD_ITS ---
EXAM: CT Angiography Chest With Intravenous Contrast CLINICAL HISTORY: 32 years old, female; Signs and symptoms; Other: Dizzy, chest tightness TECHNIQUE: Axial computed tomographic angiography images of the chest with intravenous contrast using pulmonary embolism protocol. All CT scans at this facility use at least one of these dose optimization techniques: automated exposure control; mA and/or kV adjustment per patient size (includes targeted exams where dose is matched to clinical indication); or iterative reconstruction. MIP reconstructed images were created and reviewed. Coronal and sagittal reformatted images were created and reviewed. CONTRAST: 69 mL of qued475 administered intravenously. COMPARISON: [facility] CTA THORAX 06/24/2018 1:37 PM FINDINGS: Pulmonary arteries: Unremarkable. No pulmonary embolism. Aorta: No acute findings. No thoracic aortic aneurysm. Lungs: Unremarkable. No mass. No consolidation. Pleural space: Unremarkable. No significant effusion. No pneumothorax. Heart: Unremarkable. No cardiomegaly. No significant pericardial effusion. No evidence of RV dysfunction. Bones/joints: No acute fracture. No dislocation. Soft tissues: Unremarkable. Lymph nodes: Unremarkable. No enlarged lymph nodes. Liver: Hepatic steatosis. IMPRESSION: No acute findings. Dictated and Authenticated by: Archie Lowe MD. Ordering:JESSICA PEREA MD
[2018-08-07 02:20] LABS: FREE T4 1.13 ng/dL (0.76-1.46)
== END 2018-08-07 02:47 | disposition home or self-care (01) ==
PROVIDERS: Emergency Provider Student in an Organized Health Care Education/Training Program; PCP Family Medicine
DX: R00.2 Palpitations (principal); Z53.29 Procedure and treatment not carried out because of patient's decision for other reasons
CPT/HCPCS: 36415; 71275; 80053; 80076; 93005; 99285; 83735; 84439; 84443; 84484; 85025; 93010; 99284; J3490

== ENCOUNTER 2018-10-26 17:23 | Outpatient (REF) | payer MEDICAID, SELFPAY ==
[2018-10-26 18:04] LABS: Abs Immature Grans 0.01 k/cumm (0.0-0.09); Absolute Basophil Count 0.01 k/cumm (0.0-0.2); Absolute Lymphocyte Count 1.56 k/cumm (1.2-3.4); Absolute Monocyte Count 0.44 k/cumm (0.11-0.7); Absolute Neutrophil Count 2.54 k/cumm (1.2-6.7); Basophils % 0.2; Eosinophils % 2.1; HGB 12.5 g/dL (12.0-15.5); Immature Grans % 0.2; Lymphocytes % 33.5; Mean Corp. HGB Concentration 33.8 g/dL (32.0-36.0); Mean Corpuscular Hemoglobin 34.7 pg (27.0-33.0); Mean Corpuscular Volume 102.8 fL (80-95); Mean Platelet Volume 10.4 fL (8.0-11.0); Monocytes % 9.4; Neutrophils % 54.6; Platelet Count 237 x1000/uL (130-400); RBC Distribution Width 12.9 % (11.7-14.6); White Blood Cell Count 4.66 k/cumm (4.4-10.8)
[2018-10-26 18:19] LABS: ALT 23 U/L (12-78); AST 19 U/L (15-37); Albumin 3.9 g/dL (3.4-5.0); Alkaline Phosphatase 48 U/L (46-116); Anion Gap 11.7 mmol/L (3-11); BUN 11 mg/dL (7-18); Bilirubin, Total 0.4 mg/dL (0.2-1.0); CO2 24.3 mmol/L (21.0-32.0); CREATININE 0.89 mg/dL (0.55-1.02); Calcium 9.5 mg/dL (8.5-10.1); Chloride 103 mmol/L (98-107); Glucose 92 mg/dL (70-100); Potassium 4.1 mmol/L (3.5-5.1); Sodium 139 mmol/L (136-145); Total Protein 7.4 g/dL (6.4-8.2)
[2018-10-30 19:30] LABS: Folate > 20.0 ng/mL (8.6-20.0)
[2018-11-01 10:21] LABS: Vitamin B12 807 pg/ml (211-911)
== END 2018-10-26 17:43 ==
LOC: NCHCN 17:23
PROVIDERS: PCP Family Medicine; Visit Provider Nurse Practitioner Family
DX: R11.2 Nausea with vomiting, unspecified (principal); R19.7 Diarrhea, unspecified; D53.9 Nutritional anemia, unspecified
CPT/HCPCS: 80053; 82607; 82746; 85025

== ENCOUNTER 2018-12-07 11:22 | Day surgery (SDC) | payer MEDICAID, SELFPAY ==
[2018-12-07 11:41] VITALS: BP 120/72; PULSE 71; RESP 16; TEMP 35.9; O2SAT 97
[2018-12-07] MEDS: Lactated Ringers 1,000 ML 75 ML IV ×2 (12:00→14:30)
[2018-12-07] MEDS: Bupivacaine 0.25% Pres-Free 30 ML VIAL (14:32)
--- NOTE | 2018-12-07 14:33 | ROE_ITS ---
Date of service: 12/07/18 Time of Service: 14:28 Operative Note DATE OF PROCEDURE: 12/07/18 PRE-OP DIAGNOSIS: bilateral incarcerated inguinal hernias POST-OP DIAGNOSIS: same PROCEDURE: lap bilateral hernia repair with mesh SURGEON: Gary Lock III ANESTHESIA: GETA ESTIMATED BLOOD LOSS: 5 COMPLICATIONS: None Patient was transported to: PACU Patient's condition: stable Procedure Description: Patient seen preoperatively and all risk benefits and alternatives were discussed in detail and consent was obtained. Patient was brought to the operating room and placed in the operating table supine fashion. Patient underwent general anesthesia endotracheal intubation. Patient had Pandya catheter placed for decompression of bladder during the case. A thorough timeout was done with the entire OR staff present. Patient was prepped and draped in a sterile fashion. Patient had a infraumbilical local anesthesia infiltration into the area adequate anesthesia was achieved. The patient then had a 2 cm infraumbilical incision with sharp dissection down to the level of fascia at the level of the fascia. A small incision on the left lateral side exposing the anterior fascia. With the rectus muscle identified a blunt dissection was made in this pocket creating a channel for the dissector balloon to be inserted and the balloon was insufflated to 40 pumps as per aviation ordnance officer. With multiple insufflations the #1 and #2 inner portion of the port were removed and the stay balloon was insufflated and the area insufflated to 15 mmHg. 2 additional 5 mm ports were placed midline under direct vision. Once the cavity was created the camera was inserted and the anatomy noted. The right side was done first with blunt dissection the hernia was identified as a incarcerated indirect right inguinal hernia which was reduced in total. There was a small tear in the peritoneum which was approximated with clips. Once the entire area was dissected down and appropriate lateral dissection for placement of mesh the left side was then done. Patient had the right side was done in a similar fashion with the peritoneum reduced all anatomy noted and a lateral dissection done for allowing the mesh to lay properly in the left side. There was on this side also a small tear near the round ligaments which was repaired with clips of the peritoneum. Once both sides were completely reduced the mesh was inserted. Patient had 2 preformed left and right Marlex mesh inserted into the abdomen. Both were placed in the appropriate fashion and single tack placed in the pubic tubercle on both the left and right sides. Patient had direct vision of the deflation of the cavity with proper mesh placement and ports removed under direct vision. Once the ports were removed the fascia at the umbilical incision was approximated using 0 Vicryl [id number] x2. A thorough debriefing was done with the entire OR staff present. Each port was closed in a layered fashion with Vicryl and Dermabond. Patient was moved the PACU and then home upon full recovery from anesthesia per
--- NOTE | 2018-12-07 14:33 | W.PM.DSUDISC ---
Discharge Plan Disposition Patient Disposition: HOME Condition: Stable Discharge Details Reason For Visit: bilateral inguinal hernias Attending Provider: Gary Lock III Primary Care Provider: Rylie Quarles Home Meds and New Rx's Prescriptions: New oxycodone-acetaminophen 2.5-300 mg tablet 2 tab PO Q6H PRN (Reason: pain) Qty: 24 RF: 0 Continued VIT C RF: 0 mvycg-7a-zhd-epa-fish oil 1 EACH capsule 1 ea PO DAILY RF: 0 multivitamin Tablet 1 tab PO DAILY RF: 0 Discharge Instructions Activity:: Activity as Tolerated Diet:: As Tolerated Discharge Orders Discharge Orders: Discharge Order (Routine); Ordered 12/07/18 Ordered By: Gary Lock III DS: Diagnosis Discharge Diagnosis (1) Bilateral inguinal hernia (BIH): Status: Acute
[2018-12-07 14:48] VITALS: BP 118/57; PULSE 73; RESP 16; TEMP 36.6; O2SAT 95
[2018-12-07 14:53] VITALS: BP 121/55; PULSE 67; RESP 11; TEMP 36.6; O2SAT 96
[2018-12-07 14:58] VITALS: BP 122/62; PULSE 69; RESP 17; TEMP 36.6; O2SAT 96
[2018-12-07] MEDS: fentaNYL 100 MCG/2 ML VIAL IVP ×2 (15:02→15:15)
[2018-12-07 15:13] VITALS: BP 122/62; PULSE 69; RESP 17; TEMP 36.6; O2SAT 96
[2018-12-07 15:55] VITALS: BP 106/60; PULSE 67; RESP 16; TEMP 36.5; O2SAT 97
--- NOTE | 2018-12-07 16:58 | W.PM.DSUDISC ---
Discharge Plan Disposition Patient Disposition: HOME Condition: Stable Discharge Details Reason For Visit: bilateral inguinal hernias Attending Provider: Gary Lock III Primary Care Provider: Rylie Quarles Home Meds and New Rx's Prescriptions: New oxycodone-acetaminophen 5-325 mg tablet 1 tab PO Q6H PRN (Reason: pain) Qty: 30 RF: 0 Continued VIT C RF: 0 kwyhl-3u-unq-epa-fish oil 1 EACH capsule 1 ea PO DAILY RF: 0 multivitamin Tablet 1 tab PO DAILY RF: 0 Discharge Instructions Instructions: Laparoscopic Herniorrhaphy (DC), Laparoscopic Hiatal Hernia Repair (DC) Stand Alone Forms: DSU Post op Instructions, Uday Jacobs (DSU) Activity:: Activity as Tolerated Diet:: As Tolerated Discharge Orders Discharge Orders: Discharge Order (Routine); Ordered 12/07/18 Ordered By: Gary Lock III Discharge Data Discharge Comment: pt returned due to script not being able to be filled (2.5mg percocet) had to do 5mg percocet
--- NOTE | 2018-12-07 17:05 | PDOC.DSDIS_ITS ---
Discharge Plan Disposition Patient Disposition: HOME Condition: Stable Discharge Details Reason For Visit: bilateral inguinal hernias Attending Provider: Gary Lock III Primary Care Provider: Rylie Quarles Home Meds and New Rx's Prescriptions: New oxycodone-acetaminophen 5-325 mg tablet 1 tab PO Q6H PRN (Reason: pain) Qty: 30 RF: 0 Continued VIT C RF: 0 zqyzb-5k-swv-epa-fish oil 1 EACH capsule 1 ea PO DAILY RF: 0 multivitamin Tablet 1 tab PO DAILY RF: 0 Discharge Instructions Instructions: Laparoscopic Herniorrhaphy (DC), Laparoscopic Hiatal Hernia Repair (DC) Stand Alone Forms: DSU Post op Instructions, Uday Jacobs (DSU) Activity:: Activity as Tolerated Diet:: As Tolerated Discharge Orders Discharge Orders: Discharge Order (Routine); Ordered 12/07/18 Ordered By: Gary Lock III Discharge Data Discharge Comment: pt returned due to script not being able to be filled (2.5mg percocet) had to do 5mg percocet
== END 2018-12-07 16:29 | disposition home or self-care (01) ==
PROVIDERS: PCP Family Medicine; Visit Provider Surgery
PROC: (CPT 49650; principal; 2018-12-07 13:00)
DX: K40.30 Unilateral inguinal hernia, with obstruction, without gangrene, not specified as recurrent (principal); F17.210 Nicotine dependence, cigarettes, uncomplicated
CPT/HCPCS: 49650; 81025; C1781; J0690; J1100; J1885; J2250; J2405; J3010

== ENCOUNTER 2018-12-19 18:08 | Emergency (ER) | payer MEDICAID, SELFPAY ==
[2018-12-19 18:12] VITALS: BP 124/76; PULSE 86; RESP 18; TEMP 36.5; O2SAT 100
--- NOTE | 2018-12-19 18:22 | DI.CT_ITS ---
SYMPTOM/DIAGNOSIS: LT LOW ABD PAIN, H/O BILATERAL INGUINAL HERNIA REPAIR ABDOMEN AND PELVIC CT: CT scan of the abdomen and pelvis was performed following the uneventful administration of intravenous contrast material. No acute findings are seen in the lung bases. The liver is normal in size. There is a 0.5 cm. low attenuation lesion in the right lobe of the liver. This is nonspecific. No suspicious hepatic lesions are seen. There is focal fatty infiltration near the falciform ligament. The portal, superior mesenteric and splenic veins are patent. The gallbladder is negative. No biliary ductal dilatation is present. The pancreas, spleen and adrenal glands show no acute abnormalities. The kidneys show normal and symmetric enhancement. No obstruction is identified. The urinary bladder is intact. The reproductive organs are unremarkable. Note is made of a 2.6 cm. low attenuation lesion in the right adnexa, likely reflecting an ovarian cyst. The bowel shows no evidence of obstruction or inflammation. No findings to suggest an acute appendicitis. The abdominal aorta is of normal caliber. No significant abdominal or pelvic adenopathy is present. There is a small amount of free air seen in the peritoneal cavity consistent with the patient's recent surgery. There is a small amount of free fluid in the pelvis. Post surgical changes are seen in the inguinal regions bilaterally consistent with the patient's recent inguinal surgery. There is a small amount of fluid seen within the right inguinal canal measuring 1 by 1.9 by 1.3 cm. There is also a small fluid collection to the right of the urinary bladder measuring 2 by 0.8 by 2 cm. with a thin wall. A smaller fluid collection is seen to the left of the urinary bladder measuring 0.7 cm. in maximum diameter. No acute osseous abnormality is identified. IMPRESSION: 1. 2.6 cm. low attenuation lesion in the left adnexa, likely reflecting an ovarian cyst. 2. Minimal pneumoperitoneum, likely reflecting patient's recent surgery. 3. 1.9 cm. fluid collection in the right inguinal canal. Fluid collection seen adjacent to the urinary bladder, the larger is on the right and measures 2 cm. in maximum diameter. These may represent seromas from the previous surgery. Abscesses cannot be entirely excluded.
--- NOTE | 2018-12-19 18:23 | W.ED.GENAD ---
Discharge Plan Disposition Patient Disposition: HOME Condition: Stable Discharge Details Chief Complaint: Abd Prob Clinical Impression: Abdominal pain Primary Care Provider: Rylie Quarles ED Provider: Archie Dawson Home Meds and New Rx's Prescriptions: No Action VIT C RF: 0 qpmxb-3c-sor-epa-fish oil 1 EACH capsule 1 ea PO DAILY RF: 0 oxycodone-acetaminophen 5-325 mg tablet 1 tab PO Q6H PRN (Reason: pain) Qty: 30 RF: 0 multivitamin Tablet 1 tab PO DAILY RF: 0 Discharge Instructions Instructions: Abdominal Pain (ED) Additional Instructions: Your cat scan showed an ovarian cyst that is likely causing your pain Follow up with your surgeon as scheduled IF you have severe worsening of pain, fevers or persistent vomit return to the emergency department Medical Decision Making 33 yo female who underwent bilateral inguinal hernia repair on 12/07 who comes in with complaint of llq for about 5 days. She denies fevers, chills, n/v. She has several well healing laparascopic incisions without erythema or drainage and appear well healing. HAs pain in llq on exam without gaurding, denies vaginal bleeding or d/c. Given her symptoms will obtain ct to eval for post op abscess vs diverticulitis among other potential causes of her pain. NO peritoneal signs so doubt pneumoperitoneum labs show no significant findings. She remains stable, awaiting imaging. She is declining pain medication at this time, only has mild llq pain at this time without guarding CT shows findings written in imaging datea section, has an ovarian cyst, minimal pneumoperitoneum consistent with recent surgery and seromas, there is no evidence of infection on exam, no fevers or other findings to suggest infection. I suspect her pain is referred from the cyst. She has no guarding or rebound and states pain is mild so doubt torsion at this time. She will f/u as scheduled with her surgeon on , return precautions given Differential Diagnosis constipation, diverticulitis, post op pain Imaging Data Radiologic Study: Attestation: I personally reviewed and interpreted this imaging study as follows: Imaging: CT Scan Radiologist's impression: IMPRESSION: 1. 2.6 cm low attenuation lesion at the right adnexa, possibly an ovarian cyst. 2. Minimal pneumoperitoneum upper abdomen consistent with stated history of previous surgery. 3. Fluid collection right inguinal canal 1 x 1.9 x 1.3 cm. Mild nonspecific extraperitoneal fluid just deep to the inguinal canals bilaterally, with a small extraperitoneal fluid collection to the right of the bladder approximately 2 x 0.8 x 2 cm. These may represent seromas related to previous surgery, but superimposed infection cannot be excluded. Lab Data Lab results reviewed: Yes I reviewed the patient's lab results. HPI General Mode of arrival: ambulatory. Date/Time Provider Initiated Documentation: 12/19/18 18:17. Limitations to Documentation: no limitations. Information obtained by: patient. History of Present Illness 33 year old F presents to the emergency department with the chief complaint of left lower abdominal pain, described as moderate, with intensity rated at 4. Quality is described as aching, and is localized to the abdomen. Patient reports no radiation. Patient started experiencing this week(s) (2) and it has been intermittent. No relieving factors improve symptom(s), No exacerbating factors reported . Patient notes no other symptoms.. Patient did receive the following treatments prior to arrival, none Related Data Home Medications Medication Instructions Recorded Confirmed pxxdz-5f-lqm-epa-fish oil 1 ea PO DAILY 06/27/13 12/12/18 multivitamin 1 tab PO DAILY 08/06/18 12/12/18 oxycodone-acetaminophen 1 tab PO Q6H PRN #30 tab 12/07/18 12/12/18 Previous Rx's Medication Instructions Recorded oxycodone-acetaminophen 1 tab PO Q6H PRN #30 tab 12/07/18 Allergies Allergy/AdvReac Type Severity Reaction Status Date / Time red dye Allergy Unknown HIVES ( Verified 12/19/18 18:15 A LITTLE CHILD) wheat Allergy Unknown SKIN RASH Verified 12/19/18 18:15 lactase [Lactase] AdvReac Unknown STUFFINESS, Verified 12/19/18 18:15 NAUSEA acetaminophen [From Tylenol] AdvReac see comment Verified 12/19/18 18:15 RED MEAT Allergy Unknown NAUSEA, Uncoded 12/19/18 18:15 VOMITTING, DIARRHEA, HIVES General Stated Complaint: Abd Prob BETHANY: 3 Review of Systems Review of Systems All systems reviewed & are unremarkable except as noted in HPI and below Constitutional Denies chills, Denies fever(s) and Denies weakness Cardiovascular Denies dyspnea Respiratory Denies cough and Denies dyspnea Gastrointestinal Denies nausea and Denies vomiting Genitourinary Denies dysuria Musculoskeletal Denies joint swelling Integumentary/Breasts Denies rash Neurologic Denies weakness Endocrine Denies cold intolerance and Denies heat intolerance [facility] Medical History Inguinal mass (Acute) Alcohol abuse, episodic (Chronic) Diarrhea (Acute) Nausea & vomiting (Acute) Macrocytic anemia (Chronic) Surgical History H/O bilateral inguinal hernia repair (Acute ~12/07/18) Social History Smoking and Tabacco status: Current-Occasional Exam Const General: no acute distress Orientation: alert HENMT Head: normal to inspection Ears: external ears normal General nose exam: external nose normal Mouth: moist mucous membranes Eyes General: appearance normal, both eyes and all related structures Neck Neck: normal visual inspection Resp Effort & Inspection: normal respiratory effort and able to speak in complete sentences Cardio Rate: regular rate GI Inspection: no abdominal wall ecchymosis Skin General skin exam: no rashes or lesions noted Neuro General: alert and oriented x3 Extrem General: normal to inspection Psych Mental Status: mental status grossly normal Course Vital Signs Temperature 36.5 C 12/19/18 18:12 Pulse 86 12/19/18 18:12 Respiratory Rate 18 12/19/18 18:12 Blood Pressure 124/76 12/19/18 18:12 Pulse Oximetry 100 12/19/18 18:12 Temperature 36.5 C 12/19/18 18:12 Temperature Source Skin 12/19/18 18:12 Pulse 86 12/19/18 18:12 Respiratory Rate 18 12/19/18 18:12 Blood Pressure 124/76 12/19/18 18:12 Pulse Oximetry 100 12/19/18 18:12 Oxygen Delivery Method Room Air 12/19/18 18:12 Oxygen Flow Rate 0 12/19/18 18:12 Pain Level 3 12/19/18 18:12
[2018-12-19 18:46] LABS: Abs Immature Grans 0.03 k/cumm (0.0-0.09); Absolute Basophil Count 0.02 k/cumm (0.0-0.2); Absolute Eosinophil Count 0.11 k/cumm (0.0-0.7); Absolute Lymphocyte Count 2.41 k/cumm (1.2-3.4); Absolute Monocyte Count 0.61 k/cumm (0.11-0.7); Absolute Neutrophil Count 4.36 k/cumm (1.2-6.7); Basophils % 0.3; Eosinophils % 1.5; HCT 36.3 % (36.0-46.0); HGB 12.5 g/dL (12.0-15.5); Immature Grans % 0.4; Mean Corp. HGB Concentration 34.4 g/dL (32.0-36.0); Mean Corpuscular Hemoglobin 34.5 pg (27.0-33.0); Mean Corpuscular Volume 100.3 fL (80-95); Mean Platelet Volume 9.6 fL (8.0-11.0); Monocytes % 8.1; Neutrophils % 57.7; Platelet Count 267 x1000/uL (130-400); RBC 3.62 m/cumm (4.00-5.20); RBC Distribution Width 12.2 % (11.7-14.6); White Blood Cell Count 7.54 k/cumm (4.4-10.8)
[2018-12-19] MEDS: Normal Saline 1,000 ML 1000 ML IV (18:50)
[2018-12-19] MEDS: Omnipaque 350 MG/ML 100 ML BTL IV (18:54)
[2018-12-19] MEDS: Normal Saline Flush 10 ML SYR IVP (18:55)
[2018-12-19 19:01] LABS: PTT Activated 23.7 sec (21.0-31.4)
[2018-12-19 19:08] LABS: ALT 26 U/L (12-78); AST 21 U/L (15-37); Albumin 3.7 g/dL (3.4-5.0); Alkaline Phosphatase 47 U/L (46-116); BUN 11 mg/dL (7-18); Bilirubin, Direct 0.09 mg/dL (0.00-0.20); Bilirubin, Total 0.3 mg/dL (0.2-1.0); CREATININE 0.73 mg/dL (0.55-1.02); Calcium 9.7 mg/dL (8.5-10.1); Chloride 101 mmol/L (98-107); Glucose 97 mg/dL (70-100); Lipase 87 U/L (73-393); Magnesium 1.4 mg/dL (1.8-2.4); Potassium 3.3 mmol/L (3.5-5.1); Sodium 138 mmol/L (136-145); Total Protein 7.9 g/dL (6.4-8.2)
[2018-12-19 19:15] LABS: Bilirubin Negative (Negative); Blood Negative (Negative); Clarity Clear; Glucose Negative (Negative); Ketones Trace mg/dL (Negative); Leukocyte Esterase Negative (Negative); Nitrite Negative (Negative); Specific Gravity 1.015 (1.005-1.025); Urobilinogen 0.2 EU/dL (Up TO 0.2); pH 5.5 (5-8)
--- NOTE | 2018-12-19 19:34 | DI.VRAD_ITS ---
EXAM: CT Abdomen and Pelvis With Contrast EXAM DATE/TIME: 12/19/2018 6:23 PM CLINICAL HISTORY: 33 years old, female; Signs and symptoms; Other: Left lower abdominal pain, 2 weeks ago bilateral inguinal hernia repair; Prior surgery; Surgery date: <1 month; Surgery type: See below; Patient HX: Left lower abdominal pain,2 weeks ago bilateral inguinal hernia repair; Additional info: 2 weeks ago bilateral inguinal hernia repair , worse pain on lt side per PT TECHNIQUE: Axial computed tomography images of the abdomen and pelvis with intravenous contrast. All CT scans at this facility use at least one of these dose optimization techniques: automated exposure control; mA and/or kV adjustment per patient size (includes targeted exams where dose is matched to clinical indication); or iterative reconstruction. Coronal and sagittal reformatted images were created and reviewed. CONTRAST: Contrast Material: 100 ml of omnipaque 350; Contrast Route: iv COMPARISON: No relevant prior studies available. FINDINGS: Lower thorax: No acute findings. ABDOMEN: Liver: 5 mm low attenuation lesion right lobe liver. Gallbladder and bile ducts: Normal. No calcified stones. No ductal dilation. Pancreas: Normal. No ductal dilation. Spleen: Normal. No splenomegaly. Adrenals: Normal. No mass. Kidneys and ureters: Normal. No hydronephrosis. Stomach and bowel: Normal. No obstruction. No mucosal thickening. Appendix: No evidence of appendicitis. PELVIS: Bladder: See Soft Tissues Finding. Reproductive: 2.6 cm low attenuation lesion at the right adnexa, possibly an ovarian cyst. ABDOMEN and PELVIS: Intraperitoneal space: Small amount of free pelvic fluid. Minimal pneumoperitoneum upper abdomen consistent with stated history of previous surgery. Bones/joints: No acute fracture. No dislocation. Soft tissues: Fluid collection right inguinal canal 1 x 1.9 x 1.3 cm. Mild nonspecific extraperitoneal fluid just deep to the inguinal canals bilaterally, with a small extraperitoneal fluid collection to the right of the bladder approximately 2 x 0.8 x 2 cm. These may represent seromas related to previous surgery, but superimposed infection cannot be excluded. Vasculature: Normal. No abdominal aortic aneurysm. Lymph nodes: Normal. No enlarged lymph nodes. IMPRESSION: 1. 2.6 cm low attenuation lesion at the right adnexa, possibly an ovarian cyst. 2. Minimal pneumoperitoneum upper abdomen consistent with stated history of previous surgery. 3. Fluid collection right inguinal canal 1 x 1.9 x 1.3 cm. Mild nonspecific extraperitoneal fluid just deep to the inguinal canals bilaterally, with a small extraperitoneal fluid collection to the right of the bladder approximately 2 x 0.8 x 2 cm. These may represent seromas related to previous surgery, but superimposed infection cannot be excluded. Dictated and Authenticated by: Akira Sands MD. Ordering:JOEY Almanza MD
[2018-12-19 19:48] VITALS: BP 116/61; PULSE 73; RESP 16; O2SAT 100
== END 2018-12-19 19:55 | disposition home or self-care (01) ==
PROVIDERS: Emergency Provider Emergency Medicine; PCP Nurse Practitioner Family
DX: R10.32 Left lower quadrant pain (principal); N83.201 Unspecified ovarian cyst, right side; R93.5 Abnormal findings on diagnostic imaging of other abdominal regions, including retroperitoneum; Z98.890 Other specified postprocedural states
CPT/HCPCS: 36415; 80053; 80076; 81025; 83690; 96365; 99285; 74177; 81003; 83735; 85025; 85610; 85730; 99284; J3490

== ENCOUNTER 2019-05-03 21:39 | Emergency (ER) | payer MEDICAID, SELFPAY ==
--- NOTE | 2019-05-03 21:52 | NUR.NOTE ---
Nursing Note: pt states that her lungs feel like there [phone] [id number] lbs pt also describes syncopal episodes, palpitation, left arm numbness, and a productive cough
[2019-05-03 21:53] VITALS: BP 130/97; PULSE 82; RESP 16; TEMP 37.5; O2SAT 98
[2019-05-03 21:57] VITALS: RESP 16
--- NOTE | 2019-05-03 22:13 | W.ED.GENAD ---
Discharge Plan Disposition Patient Disposition: HOME Condition: Stable Discharge Details Chief Complaint: Dizzy/Sync Clinical Impression: Cough Primary Care Provider: Rylie Quarles ED Provider: Archie Dawson Home Meds and New Rx's Prescriptions: New prednisone 50 mg tablet 50 mg PO DAILY Qty: 5 RF: 0 doxycycline hyclate 100 mg tablet 100 mg PO BID Qty: 14 RF: 0 No Action bsevl-0d-uwn-epa-fish oil 1 EACH capsule 1 ea PO DAILY RF: 0 multivitamin Tablet 1 tab PO DAILY RF: 0 Discharge Instructions Instructions: Acute Cough (ED) Additional Instructions: follow up with your primary care provider within a week if you feel you are becoming more ill, having worsening shortness of breath return to the emergency department Medical Decision Making 33 yo female who denies chronic medical problems, does smoke, who comes in with chief complaint of cough for 2 weeks. She states she feels as though her lungs are full and that she has an infection. He has pain when he coughs and denies radiation of the pain. She has clear lungs other than apical wheezing on exam bilaterally. She is wells score low and perc neg so doubt pe. No teraing back pain so doubt dissection. Her pain is only with coughing and she has subjective fevers and chills so I doubt acs at this time. I suspect uri but given productive cough and wheezing will tx with prednisone and neb and also give doxy for possible early cap. Will reassess after meds pt remains stable and wheezing has improved. She appears well and I feel she is stable for d/c. I advised f/u with pcp within a week and return precautions given Differential Diagnosis bronchitis, pna, copd ECG Data Attestation: I personally reviewed and interpreted this ECG (s) as follows: Prior ECG tracings: not available for review Interpretation: sinus rhythm, rate of 75, pr 160, no acute st t wave ishcemic findings HPI General Mode of arrival: ambulatory. Date/Time Provider Initiated Documentation: 05/03/19 21:49. Limitations to Documentation: no limitations. Information obtained by: patient. History of Present Illness 33 year old F presents to the emergency department with the chief complaint of cough, described as moderate, Quality is described as aching, and is localized to the chest. Patient reports no radiation. No relieving factors improve symptom(s), No exacerbating factors reported . Patient notes fever/chills. Patient did receive the following treatments prior to arrival, none Related Data Home Medications Medication Instructions Recorded Confirmed mewvx-2g-yik-epa-fish oil 1 ea PO DAILY 06/27/13 05/03/19 multivitamin 1 tab PO DAILY 08/06/18 05/03/19 doxycycline hyclate 100 mg PO BID #14 tab 05/03/19 prednisone 50 mg PO DAILY #5 tab 05/03/19 Previous Rx's Medication Instructions Recorded doxycycline hyclate 100 mg PO BID #14 tab 05/03/19 prednisone 50 mg PO DAILY #5 tab 05/03/19 Allergies Allergy/AdvReac Type Severity Reaction Status Date / Time red dye Allergy Unknown HIVES ( Verified 05/03/19 21:57 A LITTLE CHILD) wheat Allergy Unknown SKIN RASH Verified 05/03/19 21:57 lactase [Lactase] AdvReac Unknown STUFFINESS, Verified 05/03/19 21:57 NAUSEA acetaminophen [From Tylenol] AdvReac see comment Verified 05/03/19 21:57 RED MEAT Allergy Unknown NAUSEA, Uncoded 05/03/19 21:57 VOMITTING, DIARRHEA, HIVES General Stated Complaint: Dizzy/Sync BETHANY: 3 Review of Systems Review of Systems All systems reviewed & are unremarkable except as noted in HPI and below Gastrointestinal Denies abdominal pain, Denies nausea and Denies vomiting Integumentary/Breasts Denies rash [facility] Medical History (Updated 12/29/18 @ 11:27 by Agustina Lynne MD) Alcohol abuse, episodic (Chronic) Diarrhea (Acute) Inguinal mass (Acute) Macrocytic anemia (Chronic) Nausea & vomiting (Acute) Ovarian cyst (Acute) Surgical History H/O bilateral inguinal hernia repair (Acute ~12/07/18) Social History (Updated 12/29/18 @ 11:27 by Agustina Lynne MD) Smoking/Tobacco Use Status: Current-Occasional Tobacco Type: cigarettes Alcohol Intake: current Alcohol Intake frequency: a few times a week Alcohol type: beer Drug use: Socially Substance use type: marijuana Do you feel safe at home: Yes Do you feel safe in your relationship?: Yes Exam Const General: no acute distress Orientation: alert HENMT Head: normal to inspection Ears: external ears normal General nose exam: external nose normal Mouth: moist mucous membranes Eyes General: appearance normal, both eyes and all related structures Neck Neck: normal visual inspection Resp Effort & Inspection: normal respiratory effort and able to speak in complete sentences Cardio Rate: regular rate Skin General skin exam: no rashes or lesions noted Neuro General: alert and oriented x3 Extrem General: normal to inspection Psych Mental Status: mental status grossly normal Course Vital Signs Temperature 37.5 C 05/03/19 21:53 Pulse 82 05/03/19 21:53 Respiratory Rate 16 05/03/19 21:53 Blood Pressure 130/97 H 05/03/19 21:53 Pulse Oximetry 98 05/03/19 21:53 Temperature 37.5 C 05/03/19 21:53 Temperature Source Skin 05/03/19 21:53 Pulse 82 05/03/19 21:53 Respiratory Rate 16 05/03/19 21:57 Respiratory Effort 05/03/19 21:57 Respiratory Depth Normal 05/03/19 21:57 Respiratory Pattern Normal 05/03/19 21:57 Blood Pressure 130/97 H 05/03/19 21:53 Blood Pressure Position Sitting 05/03/19 21:53 Pulse Oximetry 98 05/03/19 21:53 Oxygen Delivery Method Room Air 05/03/19 21:53 Oxygen Flow Rate 0 05/03/19 21:53 Pain Level 3 05/03/19 21:53
[2019-05-03] MEDS: predniSONE 20 MG TAB 60 MG PO (22:26)
[2019-05-03] MEDS: Doxycycline Hyclate 100 MG CAP PO (22:27)
[2019-05-03] MEDS: Albuterol/Ipratropium 3 ML UPD VIAL UPD (22:28)
[2019-05-03] MEDS: Albuterol HFA 8 GM 60 PUFF INH IH (23:17)
[2019-05-03 23:30] VITALS: BP 130/80; PULSE 82; RESP 16; TEMP 37.5; O2SAT 99
== END 2019-05-03 23:22 | disposition home or self-care (01) ==
PROVIDERS: Emergency Provider Emergency Medicine; PCP Nurse Practitioner Family
DX: R05 Cough (principal); R50.9 Fever, unspecified; F17.210 Nicotine dependence, cigarettes, uncomplicated
CPT/HCPCS: 93005; 94640; 99283; 93010; J7512; J7620

== ENCOUNTER 2019-05-14 14:39 | Outpatient (CLI) | payer MEDICAID, SELFPAY | END 2019-05-14 14:59 | PROVIDERS: PCP Nurse Practitioner Family; Visit Provider Family Medicine | DX: R69 Illness, unspecified (principal) ==

== ENCOUNTER 2019-05-30 01:00 | Outpatient (CLI) | payer MEDICAID, SELFPAY ==
--- NOTE | 2019-05-30 15:55 | DI.RAD_ITS ---
SYMPTOM/DIAGNOSIS: COUGH R05 PA AND LATERAL CHEST: Comparison is made with 22 June 2018. The heart size is normal. The lungs are well inflated and clear. No infiltrate or effusion is seen. There is no pneumothorax. IMPRESSION: Negative chest x-ray.
== END 2019-05-30 01:20 ==
PROVIDERS: PCP Nurse Practitioner Family; Visit Provider Family Medicine
DX: R05 Cough (principal)
CPT/HCPCS: 71046

== ENCOUNTER 2019-09-15 13:21 | Emergency (ER) | payer MEDICAID, SELFPAY ==
--- NOTE | 2019-09-15 13:23 | ED.GENADUL_ITS ---
Discharge Plan Disposition Patient Disposition: HOME Condition: Improving Discharge Details Chief Complaint: GenMedical Clinical Impression: Diarrhea, Dehydration, Atypical chest pain, Fatigue Primary Care Provider: Rian Evans ED Provider: Constance Nj Home Meds and New Rx's Prescriptions: Continued [id number]-[id number] oil 1 EACH capsule 1 ea PO DAILY RF: 0 multivitamin Tablet 1 tab PO DAILY RF: 0 Discharge Instructions Instructions: Dehydration (ED), Acute Diarrhea (ED), Fatigue (ED) Additional Instructions: Drink plenty of fluids and get plenty of rest. Take the Zofran as needed and directed for nausea and vomiting. Alternate Tylenol and Motrin as needed and directed for pain. Alternate ice and heat to the affected area several times daily for 20 minutes at a time. You can purchase [id number] Lidoderm patches to help topically with pain. Follow-up with your primary care doctor within the next week for reevaluation. Return to the emergency department if you develop any worsening or new concerning symptoms. Stand Alone Forms: Work Release Discharge Data Discharge Date/Time-TO BE ENTERED AT DEPARTURE: 09/15/19 17:05 Discharge Physician: Constance Nj Medical Decision Making 1410 -- 34-year-old female with a history of intermittent alcohol abuse presents with generalized weakness, fatigue, dizziness, chest tightness and shortness of breath since yesterday and diarrhea today. States she has had 8+ episodes of watery brown diarrhea. States her chest tightness is slightly worse when leaning forward and radiates to her left arm and left shoulder. She denies any known injury. She also admits to i ntermittent dizziness which feels like lightheadedness and worse when she is walking around. She admits to subjective fevers and nausea but denies any vomiting, headache, urinary symptoms, recent travel, recent surgery, leg pain or swelling. EKG on arrival notes a rate of 83, sinus with no acute ST ischemic changes. No findings consistent with pericarditis. Vitals within normal limits. She is afebrile. She appears generally fatigued but nontoxic. test negative. Differential diagnosis includes dehydration, electrolyte abnormality, gastroenteritis, viral illness, pneumonia, UTI. History and presentation not consistent with PE and patient is PERC negative. Will place an IV, bolus IV fluids, screening labs, chest x-ray and urinalysis, Toradol and Zofran and will reassess. 1630 -- Labs and imaging reviewed and unremarkable. Normal white blood cell count. Normal electrolytes. Negative troponin. Chest x-ray negative for acute disease. UA negative for infection but noted ketones. Patient states she feels significantly better. Denies any dizziness, chest pain, shortness of breath. Patient appears comfortable and much improved compared to arrival. We will send home with Jerman. She is advised to drink plenty of fluids, follow-up with the primary care doctor for reevaluation and to return here with any concerns. Medical Records Medical records reviewed: Yes I reviewed the patient's medical records. Imaging Data Radiologic Study: Radiologist's impression: XR Chest, 2 Views Exam date and time: 09/15/2019 2:52 PM Age: 34 years old Clinical history: Other: SOB, chest pain, R/O acute disease TECHNIQUE: Imaging protocol: XR of the chest Views: 2 views. COMPARISON: CR XR CHEST 2V PA LATERAL 05/30/2019 3:55 PM FINDINGS: Lungs: Lung volumes are slightly diminished compared to the prior examination. Pleural space: Unremarkable. No pleural effusion. No pneumothorax. Heart/Mediastinum: Mild prominence of the cardiac silhouette is likely secondary to poor inspiration and diminished lung volumes. Mild cardiomegaly is not completely excluded. Bones/joints: Unremarkable. IMPRESSION: 1. No acute pulmonary process. 2. Mild prominence of the cardiac silhouette is likely secondary to poor inspiration and diminished lung volumes. Mild cardiomegaly is not completely excluded. Lab Data Lab results reviewed: Yes I reviewed the patient's lab results. Labs: Laboratory Tests Range/Units 09/15/19 09/15/19 14:10 14:10 WBC (4.4-10.8) k/cumm 6.02 RBC (4.00-5.20) m/cumm 3.89 L Hgb (12.0-15.5) g/dL 13.1 Hct (36.0-46.0) % 38.4 MCV (80-95) fL 98.7 H MCH (27.0-33.0) pg 33.7 H MCHC (32.0-36.0) g/dL 34.1 RDW (11.7-14.6) % 12.0 Plt Count (130-400) x1000/uL 248 MPV (8.0-11.0) fL 9.9 Immature Gran % 0.2 Neutrophils % 59.4 Lymphocytes % 30.9 Monocytes % 9.1 Eosinophils % 0.2 Basophils % 0.2 Absolute Neutrophils (1.2-6.7) k/cumm 3.58 Absolute Lymphocytes (1.2-3.4) k/cumm 1.86 Absolute Monocytes (0.11-0.7) k/cumm 0.55 Absolute Eosinophils (0.0-0.7) k/cumm 0.01 Absolute Basophils (0.0-0.2) k/cumm 0.01 Sodium (136-145) mmol/L 139 Potassium (3.5-5.1) mmol/L 4.1 Chloride (98-107) mmol/L 106 Carbon Dioxide (21.0-32.0) mmol/L 23.1 Anion Gap (3-11) mmol/L 9.9 BUN (7-18) mg/dL 12 Creatinine (0.55-1.02) mg/dL 0.65 Estimated GFR/1.73 m2 (mL/min/1.73m2) >= 60.00 Glucose (74-106) mg/dL 103 Calcium (8.5-10.1) mg/dL 9.5 Magnesium (1.8-2.4) mg/dL 2.0 Total Bilirubin (0.2-1.0) mg/dL 0.3 AST (15-37) U/L 21 ALT (14-59) U/L 30 Alkaline Phosphatase (46-116) U/L 55 Troponin I (<0.06) ng/Ml < 0.05 Total Protein (6.4-8.2) g/dL 8.0 Albumin (3.4-5.0) g/dL 4.2 Laboratory Tests Range/Units 09/15/19 09/15/19 09/15/19 14:10 14:10 15:20 WBC (4.4-10.8) k/cumm 6.02 RBC (4.00-5.20) m/cumm 3.89 L Hgb (12.0-15.5) g/dL 13.1 Hct (36.0-46.0) % 38.4 MCV (80-95) fL 98.7 H MCH (27.0-33.0) pg 33.7 H MCHC (32.0-36.0) g/dL 34.1 RDW (11.7-14.6) % 12.0 Plt Count (130-400) x1000/uL 248 MPV (8.0-11.0) fL 9.9 Immature Gran % 0.2 Neutrophils % 59.4 Lymphocytes % 30.9 Monocytes % 9.1 Eosinophils % 0.2 Basophils % 0.2 Absolute Neutrophils (1.2-6.7) k/cumm 3.58 Absolute Lymphocytes (1.2-3.4) k/cumm 1.86 Absolute Monocytes (0.11-0.7) k/cumm 0.55 Absolute Eosinophils (0.0-0.7) k/cumm 0.01 Absolute Basophils (0.0-0.2) k/cumm 0.01 Sodium (136-145) mmol/L 139 Potassium (3.5-5.1) mmol/L 4.1 Chloride (98-107) mmol/L 106 Carbon Dioxide (21.0-32.0) mmol/L 23.1 Anion Gap (3-11) mmol/L 9.9 BUN (7-18) mg/dL 12 Creatinine (0.55-1.02) mg/dL 0.65 Estimated GFR/1.73 m2 (mL/min/1.73m2) >= 60.00 Glucose (74-106) mg/dL 103 Calcium (8.5-10.1) mg/dL 9.5 Magnesium (1.8-2.4) mg/dL 2.0 Total Bilirubin (0.2-1.0) mg/dL 0.3 AST (15-37) U/L 21 ALT (14-59) U/L 30 Alkaline Phosphatase (46-116) U/L 55 Troponin I (<0.06) ng/Ml < 0.05 Total Protein (6.4-8.2) g/dL 8.0 Albumin (3.4-5.0) g/dL 4.2 Urine Color (Yellow) Straw Urine Clarity (Clear) Clear Urine pH (5-8) 6.0 Ur Specific [place] (1.005-1.025) 1.010 Urine Protein (Negative) mg/dL Negative Urine Ketones (Negative) mg/dL Trace H Urine Blood (Negative) Negative Urine Nitrite (Negative) Negative Urine Bilirubin (Negative) Negative Urine Urobilinogen (Up TO 0.2) EU/dL 0.2 Ur Leukocyte Esterase (Negative) Negative Urine Glucose (Negative) mg/dL Negative ECG Data Attestation: I personally reviewed and interpreted this ECG (s) as follows: Interpretation: Rate of 85, sinus, no acute ST elevation or depression. OR 140. QTc 433. QRS 92. HPI General Mode of arrival: ambulatory . Date/Time Provider Initiated Documentation: 09/15/19 13:22 . Limitations to Documentation: no limitations . Information obtained by: patient . History of Present Illness 34 year old F presents to the emergency department with the chief complaint of chest carlos, shortness of breath, dizziness, fatigue, described as moderate, with intensity rated at 5. Quality is described as other (chest tightness), and is localized to the chest. Patient extremity (left arm). Patient started experiencing this day(s) (2) and it has been constant. No relieving factors improve symptom(s), Other factors that worsen symptoms (bending forward) . Patient notes chest pain, fever/chills, loss of appetite, malaise, nausea/vomiting (no vomiting), shortness of breath and weakness; denies cough, diaphoresis, headaches, rash, seizure and syncope. Patient did receive the following treatments prior to arrival, none Related Data Home Medications Medication Instructions Recorded Confirmed [id number]-[id number] oil 1 ea PO DAILY 06/27/13 09/15/19 multivitamin 1 tab PO DAILY 08/06/18 09/15/19 Allergies Allergy/AdvReac Type Severity Reaction Status Date / Time red dye Allergy Unknown HIVES ( Verified 09/15/19 13:45 A LITTLE CHILD) wheat Allergy Unknown SKIN RASH Verified 09/15/19 13:45 lactase [Lactase] AdvReac Unknown STUFFINESS, Verified 09/15/19 13:45 NAUSEA acetaminophen [From Tylenol] AdvReac see comment Verified 09/15/19 13:45 RED MEAT Allergy Unknown NAUSEA, Uncoded 09/15/19 13:45 VOMITTING, DIARRHEA, HIVES General BETHANY: 3 Review of Systems All systems reviewed & are unremarkable except as noted in HPI and below Constitutional Constitutional: Reports as per HPI, Denies chills and Denies fever(s) Eyes Eyes: Denies blurry vision ENT Ears, Nose, Mouth, and Throat: Reports dizziness, Denies sore throat and Denies throat swelling Cardiovascular Cardiovascular: Reports chest pain and Reports dyspnea Respiratory Respiratory: Denies cough and Reports dyspnea Gastrointestinal Gastrointestinal: Denies abdominal pain, Reports diarrhea and Denies vomiting Genitourinary Genitourinary: Denies hematuria and Denies dysuria Musculoskeletal Musculoskeletal: Denies back pain and Denies numbness Integumentary/Breasts Skin/Breast: Denies lesions and Denies rash Neurologic Neurologic: Reports dizziness, Denies focal weakness and Denies numbness Allergic/Immunologic Allergic/Immunologic: Denies throat swelling [facility] Medical History Alcohol abuse, episodic (Chronic) Diarrhea (Acute) Inguinal mass (Acute) Macrocytic anemia (Chronic) Nausea & vomiting (Acute) Ovarian cyst (Acute) Surgical History H/O bilateral inguinal hernia repair (Acute ~12/07/18) pt is doing well postOp. We discussed the importance of monitoring for pain when, she is working to avoid injuries. She needs to be back to work for financial reason. She does not require a letter for work. She is having non problems w/ her bowels. She is using NSAID's for pain. no cough. no sinus pain. no dysuria. no leg pain or swelling. If she continues to have problems w/ ovarian cysts- she should talk to PCP about hormone therapy. (She has never had problems before). Anesthesia and the stress of surgery could have disrupted her cycle and contributed to the cysts-hopefully she will not have any further. She has no concerns today and can cont her routine medical care w/ PCP. If she has any questions or concerns- please contact our office. thank you Social History Smoking/Tobacco Use Status: Current-Occasional Tobacco Type: cigarettes Alcohol Intake: current Alcohol Intake frequency: a few times a week Alcohol type: beer Drug use: Occasionally Substance use type: marijuana Do you feel safe at home: Yes Do you feel safe in your relationship?: Yes Exam Const General: cooperative and healthy appearing Orientation: alert and awake HENMT Head: normal to inspection Ears: hearing grossly normal bilaterally, external ears normal and TM's normal bilaterally General nose exam: external nose normal Face and sinus: normal facial exam Mouth: oral mucosae normal Teeth and gingiva: dentition normal Throat: posterior oropharynx normal Eyes General: appearance normal, both eyes and all related structures Eyelids: eyelids normal Pupils: PERRL EOM: EOM intact bilaterally Neck Neck: normal visual inspection Lymphatic: no lymphadenopathy noted Chest Chest: normal inspection of the chest Resp Effort & Inspection: normal respiratory effort and able to speak in complete sentences Auscultation: clear to auscultation bilaterally Cardio Rate: regular rate Rhythm: regular rhythm GI Inspection: normal to inspection Palpation: soft, not firm, no guarding, no hepatosplenomegaly, no masses and nontender Auscultation: normal bowel sounds Back/Spine/Pelvis Back: no CVA tenderness Skin General skin exam: no rashes or lesions noted Neuro General: alert, awake and oriented x3 Cranial Nerves: CN's II-XI intact bilaterally Cognition: normal cognition Speech: speech normal Gait: normal gait Motor: muscle tone normal throughout and strength 5/5 throughout Sensory Exam: no sensory deficits noted Extrem General: normal to inspection, full ROM, normal capillary refill and no edema Psych Appearance: grossly normal Mental Status: mental status grossly normal Speech and Movement: speech and movement normal Affect: normal affect Thought Process: normal
[2019-09-15 13:28] VITALS: BP 142/85; PULSE 85; RESP 18; TEMP 37.2; O2SAT 100
[2019-09-15] MEDS: Normal Saline 1,000 ML 1000 ML IV (14:16)
[2019-09-15 14:23] LABS: Abs Immature Grans 0.01 k/cumm (0.0-0.09); Absolute Basophil Count 0.01 k/cumm (0.0-0.2); Absolute Eosinophil Count 0.01 k/cumm (0.0-0.7); Absolute Lymphocyte Count 1.86 k/cumm (1.2-3.4); Absolute Monocyte Count 0.55 k/cumm (0.11-0.7); Absolute Neutrophil Count 3.58 k/cumm (1.2-6.7); Basophils % 0.2; Eosinophils % 0.2; HCT 38.4 % (36.0-46.0); HGB 13.1 g/dL (12.0-15.5); Immature Grans % 0.2; Lymphocytes % 30.9; Mean Corp. HGB Concentration 34.1 g/dL (32.0-36.0); Mean Corpuscular Hemoglobin 33.7 pg (27.0-33.0); Mean Corpuscular Volume 98.7 fL (80-95); Mean Platelet Volume 9.9 fL (8.0-11.0); Monocytes % 9.1; Neutrophils % 59.4; Platelet Count 248 x1000/uL (130-400); RBC 3.89 m/cumm (4.00-5.20); White Blood Cell Count 6.02 k/cumm (4.4-10.8)
[2019-09-15 14:34] LABS: ALT 30 U/L (14-59); AST 21 U/L (15-37); Albumin 4.2 g/dL (3.4-5.0); Alkaline Phosphatase 55 U/L (46-116); Anion Gap 9.9 mmol/L (3-11); BUN 12 mg/dL (7-18); Bilirubin, Total 0.3 mg/dL (0.2-1.0); CO2 23.1 mmol/L (21.0-32.0); CREATININE 0.65 mg/dL (0.55-1.02); Calcium 9.5 mg/dL (8.5-10.1); Chloride 106 mmol/L (98-107); Glucose 103 mg/dL (74-106); Potassium 4.1 mmol/L (3.5-5.1); Sodium 139 mmol/L (136-145); Troponin I < 0.05 ng/Ml (<0.06)
--- NOTE | 2019-09-15 14:50 | DI.RAD_ITS ---
EXAM: XR CHEST 2V PA LATERAL INDICATION: sob, chest pain, r/o acute disease. COMPARISON: XR CHEST 2V PA LATERAL from 05/30/2019 TECHNIQUE: 2D digital imaging was performed. FINDINGS: The heart size is normal. The lungs are reasonably well inflated and appear clear. No infiltrate, e ffusion or pneumothorax is seen. The thoracic spine is unremarkable. IMPRESSION: Negative chest x-ray.
--- NOTE | 2019-09-15 15:05 | DI.VRAD_ITS ---
PROCEDURE INFORMATION: Exam: XR Chest, 2 Views Exam date and time: 09/15/2019 2:52 PM Age: 34 years old Clinical history: Other: SOB, chest pain, R/O acute disease TECHNIQUE: Imaging protocol: XR of the chest Views: 2 views. COMPARISON: CR XR CHEST 2V PA LATERAL 05/30/2019 3:55 PM FINDINGS: Lungs: Lung volumes are slightly diminished compared to the prior examination. Pleural space: Unremarkable. No pleural effusion. No pneumothorax. Heart/Mediastinum: Mild prominence of the cardiac silhouette is likely secondary to poor inspiration and diminished lung volumes. Mild cardiomegaly is not completely excluded. Bones/joints: Unremarkable. IMPRESSION: 1. No acute pulmonary process. 2. Mild prominence of the cardiac silhouette is likely secondary to poor inspiration and diminished lung volumes. Mild cardiomegaly is not completely excluded. Dictated and Authenticated by: Oswaldo Bajwa MD. Ordering:ASHLEY Nolasco MD
[2019-09-15] MEDS: Ondansetron 4 MG/2 ML VIAL IVP (15:23)
[2019-09-15] MEDS: Ketorolac 30 MG/ML VIAL IVP (15:23)
[2019-09-15 15:45] LABS: Bilirubin Negative (Negative); Blood Negative (Negative); Clarity Clear (Clear); Glucose Negative (Negative); Ketones Trace mg/dL (Negative); Leukocyte Esterase Negative (Negative); Nitrite Negative (Negative); Urobilinogen 0.2 EU/dL (Up TO 0.2)
[2019-09-15 15:46] VITALS: BP 116/68; PULSE 77; RESP 18; O2SAT 99
[2019-09-15] MEDS: Ondansetron O.D.T. 4 MG TABEF, 3 TABS/BTL PO (16:59)
[2019-09-15 17:01] VITALS: BP 114/72; PULSE 77; RESP 17; TEMP 36.8; O2SAT 100
== END 2019-09-15 17:05 | disposition home or self-care (01) ==
PROVIDERS: Emergency Provider Physician Assistant; PCP Nurse Practitioner Family
DX: R19.7 Diarrhea, unspecified (principal); E86.0 Dehydration; R07.89 Other chest pain; R53.83 Other fatigue; R42 Dizziness and giddiness
CPT/HCPCS: 36415; 80053; 81025; 93005; 96361; 96374; 96375; 99285; 71046; 81003; 83735; 84484; 85025; 93010; J1885; J2405

== ENCOUNTER 2019-12-02 17:08 | Emergency (ER) | payer MEDICAID, SELFPAY ==
[2019-12-02 17:12] VITALS: BP 120/76; PULSE 83; RESP 18; TEMP 36.5; O2SAT 97
--- NOTE | 2019-12-02 17:29 | ED.GENADUL_ITS ---
Discharge Plan Disposition Patient Disposition: HOME Condition: Stable Discharge Details Chief Complaint: FacialProb Clinical Impression: Sinus headache Primary Care Provider: Rian Evans ED Provider: Lisa Perez Home Meds and New Rx's Prescriptions: New naproxen [EC-Naproxen] 500 mg tablet,delayed release (DR/EC) 500 mg PO BID PRN (Reason: pain) Qty: 10 RF: 0 amoxicillin-pot clavulanate [Augmentin] 875-125 mg tablet 1 tab PO BID 7 Days Qty: 14 RF: 0 Continued [id number]-epa-fish oil 1 EACH capsule 1 ea PO DAILY RF: 0 multivitamin Tablet 1 tab PO DAILY RF: 0 Discharge Instructions Instructions: Sinusitis (ED), General Headache (ED) Additional Instructions: Follow up with primary care provider in 3-5 days. Return to ED sooner if any worsening or concerns. Increase oral fluids. Please take Tylenol or Ibuprofen with food every 4-6 hours as needed for pain and swelling. Take medications as directed. Referrals: Rian Evans, [facility] [Primary Care Provider] - Medical Decision Making 34-year-old female presents with right-sided sinus headache x5 days. Denies fever, trauma. Sore throat or ear pain. She reports little bit of nasal discharge. At this time x-ray facial bone is ordered and ibuprofen 600 mg p.o. TECHNIQUE: Imaging protocol: XR of the facial bones, less than 3 views. COMPARISON: No relevant prior studies available. FINDINGS: Sinuses: Well aerated. No opacification. Bones/joints: No fracture. Soft tissues: Unremarkable. IMPRESSION: Unremarkable. Thank you for allowing us to participate in the care of your patient. Dictated and Authenticated by: Raleigh Calvo MD 12/02/2019 6:25 PM Eastern Time ([place] & [place]) Patient states that she has had this tenderness for about 3 weeks. Ibuprofen helped somewhat. Prescription written for Augmentin for possible sinusitis and naproxen for pain. Instructed to return if any worsening fever or concerns. Verbalized understanding. Patient is alert and oriented vital signs are stable throughout stay. HPI General Mode of arrival: ambulatory . Date/Time Provider Initiated Documentation: 12/02/19 17:19 . Limitations to Documentation: no limitations . Information obtained by: patient . HPI Narrative: 34-year-old female presents with right-sided facial pain for 4 to 5 days. She reports sinus pressure and sensitivity to light. Pain goes from her right side of her forehead all the way down to her right side of the jaw. She states that she went to the dentist and was told that it was not dental. No cervical lymphadenopathy, no exudate to her throat. She does have maxillary sinus tenderness to palpation. Bilateral tympanic membranes are retracted non-erythemic. She is alert and oriented x3. She has an occasional smoker. Related Data Home Medications Medication Instructions Recorded Confirmed [id number]-epa-fish oil 1 ea PO DAILY 06/27/13 12/02/19 multivitamin 1 tab PO DAILY 08/06/18 12/02/19 amoxicillin-pot clavulanate 1 tab PO BID 7 Days #14 tab 12/02/19 [Augmentin] naproxen [EC-Naproxen] 500 mg PO BID PRN #10 tab 12/02/19 Previous Rx's Medication Instructions Recorded amoxicillin-pot clavulanate 1 tab PO BID 7 Days #14 tab 12/02/19 [Augmentin] naproxen [EC-Naproxen] 500 mg PO BID PRN #10 tab 12/02/19 Allergies Allergy/AdvReac Type Severity Reaction Status Date / Time red dye Allergy Unknown HIVES ( Verified 12/02/19 17:18 A LITTLE CHILD) wheat Allergy Unknown SKIN RASH Verified 12/02/19 17:18 lactase [Lactase] AdvReac Unknown STUFFINESS, Verified 12/02/19 17:18 NAUSEA acetaminophen [From Tylenol] AdvReac see comment Verified 12/02/19 17:18 RED MEAT Allergy Unknown NAUSEA, Uncoded 12/02/19 17:18 VOMITTING, DIARRHEA, HIVES General Stated Complaint: FacialProb BETHANY: 3 Review of Systems Narrative: Constitutional: Negative for weight loss, alert and oriented, well groomed, normal body habitus, appears uncomfortable. HEENT: Denies trauma, blurry vision, , sore throat, trouble swallowing. Positive headache, positive nasal discharge, positive sinus tenderness. Chest: Denies chest pain, palpitations, irregular rhythm, hypertension. Respiratory: Denies Shortness of breath, cough, hemoptysis. GI: Denies abdominal pain, nausea, vomiting, diarrhea, constipation. : Denies dysuria, hematuria, flank pain, rectal bleeding. Neuro: Denies dizziness, blurry vision, weakness, syncope, or facial numbness. Positive headache. Hematologic: Denies easy bruising, intolerance to heat or cold, hair loss. [facility] Medical History Alcohol abuse, episodic (Chronic) Diarrhea (Acute) Inguinal mass (Acute) Macrocytic anemia (Chronic) Nausea & vomiting (Acute) Ovarian cyst (Acute) Surgical History H/O bilateral inguinal hernia repair (Acute ~12/07/18) pt is doing well postOp. We discussed the importance of monitoring for pain when, she is working to avoid injuries. She needs to be back to work for financial reason. She does not require a letter for work. She is having non problems w/ her bowels. She is using NSAID's for pain. no cough. no sinus pain. no dysuria. no leg pain or swelling. If she continues to have problems w/ ovarian cysts- she should talk to PCP about hormone therapy. (She has never had problems before). Anesthesia and the stress of surgery could have disrupted her cycle and contributed to the cysts-hopefully she will not have any further. She has no concerns today and can cont her routine medical care w/ PCP. If she has any questions or concerns- please contact our office. thank you Social History Smoking/Tobacco Use Status: Current-Occasional Tobacco Type: cigarettes Alcohol Intake: current Alcohol Intake frequency: a few times a week Alcohol type: beer Drug use: Occasionally Substance use type: marijuana Do you feel safe at home: Yes Do you feel safe in your relationship?: Yes Exam Narrative Exam Narrative: Constitutional: Allert and oriented x3. Appears stated age. Normal body habitus. Head: Normocephalic, no trauma. Mild right sided maxillary sinus tenderness to palpation. Eyes: Pupils PERRLA, Red reflex noted, EOM's intact. Eyelids symmetrical withour lesions, discharge, or swelling. ENT: Bilateral TM's retracted external ear normal to inspection, no mastoid TTP, swelling, or erythema, Nasal turbinates WNL, no nasal discharge. Normal dentition, Posterior pharynx WNL, no exudate. Chest: RRR, Normal S1, S2, distal pulses intact. Resp: Lungs clear to auscultation bilaterally, no wheezes, rales, or rhonchi. Musculoskeletal: Normal gait, 5/5 strength to all four extremities. Skin: No suspicious rashes or lesions. Capillary refill ?2 sec. Neurologic: Cranial nerves II-XII intact. Alert and oriented x 3. DTR's intact. Hematologic/Lymphatic: No ecchymosis, no lymphadenopathy. Course Vital Signs Vital signs: Vital Signs Temperature 36.5 C 12/02/19 17:12 Pulse 83 12/02/19 17:12 Respiratory Rate 18 12/02/19 17:12 Blood Pressure 120/76 12/02/19 17:12 Pulse Oximetry 97 12/02/19 17:12 Temperature 36.5 C 12/02/19 17:12 Temperature Source Temporal Artery Scan 12/02/19 17:12 Pulse 83 12/02/19 17:12 Respiratory Rate 18 12/02/19 17:12 Respiratory Effort 12/02/19 17:15 Blood Pressure 120/76 12/02/19 17:12 Pulse Oximetry 97 12/02/19 17:12 Oxygen Delivery Method Room Air 12/02/19 17:12 Oxygen Flow Rate 0 12/02/19 17:12 Pain Level 6 12/02/19 17:12
[2019-12-02] MEDS: Ibuprofen 600 MG TAB PO (17:52)
--- NOTE | 2019-12-02 18:05 | DI.RAD_ITS ---
EXAM: XR FACIAL BONES COMPLETE INDICATION: Right sided facial pain. COMPARISON: No exams were available for comparison TECHNIQUE: 2D digital imaging was performed. FINDINGS: There is no evidence of skull or facial fracture. There is no temporomandibular joint dislocation. The sinuses appear clear. IMPRESSION: Negative facial bones.
--- NOTE | 2019-12-02 18:26 | DI.VRAD_ITS ---
PROCEDURE INFORMATION: Exam: XR Facial Bones, Less Than 3 Views Exam date and time: 12/02/2019 6:06 PM Age: 34 years old Clinical indication: Other: Right sided facial pain TECHNIQUE: Imaging protocol: XR of the facial bones, less than 3 views. COMPARISON: No relevant prior studies available. FINDINGS: Sinuses: Well aerated. No opacification. Bones/joints: No fracture. Soft tissues: Unremarkable. IMPRESSION: Unremarkable. Dictated and Authenticated by: Raleigh Calvo MD. Ordering:JOYCE Gonzalez MD
[2019-12-02 18:54] VITALS: BP 120/76; PULSE 83; RESP 18; TEMP 36.5; O2SAT 97
== END 2019-12-02 18:55 | disposition home or self-care (01) ==
PROVIDERS: Emergency Provider Registered Nurse Emergency; PCP Nurse Practitioner Family
DX: R51 Headache (principal); J01.00 Acute maxillary sinusitis, unspecified
CPT/HCPCS: 99283; 70150